=== PATIENT | female | born 1970 | race Caucasian/White ===

== ENCOUNTER 2022-11-02 08:29 | Outpatient (OUT) | payer BC, SELFPAY ==
[2022-11-02 08:49] LABS: Basophils Percent Auto 0.6 % (0.2-2.0); Eosinophils Absolute Auto 0.1 10^3/uL (0.0-0.7); Eosinophils Percent Auto 1.9 % (0.9-7.0); Hematocrit 40.1 % (36.0-48.0); Immature Granulocytes Abs Auto 0.01 10^3/uL (0.00-0.03); Immature Granulocytes Pct Auto 0.2 % (0.0-0.5); Lymphocytes Absolute Auto 1.5 10^3/uL (1.2-3.8); Mean Corpuscular HGB Conc 32.4 g/dL (29.9-35.2); Mean Corpuscular Hemoglobin 29.5 pg (26.7-34.0); Mean Corpuscular Volume 91.1 fL (81.0-99.0); Mean Platelet Volume 9.1 fL (9.5-13.5); Monocytes Absolute Auto 0.4 10^3/uL (0.3-0.8); Neutrophils Absolute Auto 3.2 10^3/uL (1.4-6.5); Neutrophils Percent Auto 61.3 % (43.0-75.0); Platelet Count 247 10^3/uL (150-450); Red Cell Distribution Width 12.6 % (11.0-15.0); White Blood Count 5.3 10^3/uL (4.0-11.0)
[2022-11-02 09:41] LABS: Alanine Aminotransferase 24 U/L (14-59); Albumin Globulin Ratio 0.9; Albumin Level 3.7 g/dL (3.4-5.0); Alkaline Phosphatase 140 U/L (46-116); Anion Gap 11.3; Aspartate Amino Transferase 13 U/L (15-37); BUN Creatinine Ratio 14.3; Bilirubin Total 0.5 mg/dL (0.2-1.0); Calcium 9.6 mg/dL (8.5-10.1); Chloride 105 mmol/L (98-107); Chol HDL Ratio 4.6; Cholesterol 143 mg/dL (<=200); Estimated GFR (African America >60 (>=60); Estimated GFR (Non-African Ame >60 (>=60); Globulin 4.3 g/dL; Glucose 105 mg/dL (74-106); HDL Cholesterol 31 mg/dL (40-60); Potassium 4.3 mmol/L (3.5-5.1); Sodium 139 mmol/L (136-145); Thyroid Stimulating Hormone 0.494 uIU/mL (0.358-3.740); Triglycerides 106 mg/dL (<=150); VLDL CHOLESTEROL 21.2 mg/dL
--- NOTE | 2022-11-02 11:32 | MM_ITS ---
Patient: VINH BROWN Exam Date: 11/02/2022 : 1970 Gender:F Ordering : Non-Staff Physician Admission #: [id number] Family : LUKE REECE Order #: [id number] CLICK HERE TO VIEW EXAM RADIOLOGY REPORT PROCEDURE: MM TOMOSYNTHESIS SCREENING BI COMPARISON: MG MAMM SCREEN 3D CINDA CAD, 11/09/2021. MG MAMM SCREEN 3D CINDA CAD, 10/30/2020. MG MAMM SCREEN CINDA W CAD, 10/24/2018. MG MAMM SCREEN CINDA W CAD, 08/30/2017. INDICATIONS: Z12.31 Calculator Name NCI Breast Cancer Risk Assessment Tool 5 Year Breast Cancer Risk 1.00% Lifetime Breast Cancer Risk 7.70% Personal Breast Cancer No Personal Ovarian Cancer No Treatments None Family Cancers None LOCATION: [facility] BREAST COMPOSITION: Heterogeneously dense,which may obscure small masses. FINDINGS: DIAGNOSTIC CATEGORY 2--BENIGN FINDING: RIGHT BREAST: No significant suspicious finding. Scattered benign-appearing calcifications are present. Scattered benign-appearing lymph nodes are present. No significant change has occurred. LEFT BREAST: No significant suspicious finding. Scattered benign-appearing lymph nodes are present. No significant change has occurred. RECOMMENDATIONS: ROUTINE MAMMOGRAM AND CLINICAL EVALUATION IN 12 MONTHS. PLEASE NOTE: A NORMAL MAMMOGRAM DOES NOT EXCLUDE THE POSSIBILITY OF BREAST CANCER. A CLINICALLY SUSPICIOUS PALPABLE LUMP SHOULD BE BIOPSIED. Dictated by: Behzad Hess M.D. on 11/03/2022 at 14:42 Approved by: Behzad Hess M.D. on 11/03/2022 at 14:50
== END 2022-11-02 08:30 | disposition home or self-care (01) ==
LOC: MAMMO 08:29
DX: Z00.00 Encounter for general adult medical examination without abnormal findings (principal); Z12.31 Encounter for screening mammogram for malignant neoplasm of breast
CPT/HCPCS: 36415; 77063; 77067; 80053; 80061; 84443; 85025

== ENCOUNTER 2023-11-03 09:51 | Outpatient (OUT) | payer BC, SELFPAY ==
[2023-11-03 10:05] LABS: Basophils Percent Auto 0.3 % (0.2-2.0); Eosinophils Absolute Auto 0.1 10^3/uL (0.0-0.7); Eosinophils Percent Auto 1.2 % (0.9-7.0); Hematocrit 40.5 % (36.0-48.0); Hemoglobin 13.2 g/dL (12.0-16.0); Immature Granulocytes Abs Auto 0.01 10^3/uL (0.00-0.03); Immature Granulocytes Pct Auto 0.2 % (0.0-0.5); Lymphocytes Absolute Auto 1.6 10^3/uL (1.2-3.8); Lymphocytes Percent Auto 27.8 % (20.5-60.0); Mean Corpuscular HGB Conc 32.6 g/dL (29.9-35.2); Mean Corpuscular Hemoglobin 28.5 pg (26.7-34.0); Mean Corpuscular Volume 87.5 fL (81.0-99.0); Mean Platelet Volume 9.2 fL (9.5-13.5); Monocytes Absolute Auto 0.4 10^3/uL (0.3-0.8); Monocytes Percent Auto 7.5 % (1.7-12.0); Neutrophils Absolute Auto 3.6 10^3/uL (1.4-6.5); Platelet Count 257 10^3/uL (150-450); Red Blood Count 4.63 10^6/uL (4.20-5.40); White Blood Count 5.8 10^3/uL (4.0-11.0)
[2023-11-03 10:18] LABS: Estimated Average Glucose 108 mg/dL; Glycohemoglobin A1C 5.4 % (4.5-6.2)
[2023-11-03 11:40] LABS: Alanine Aminotransferase 30 U/L (14-59); Albumin Level 3.9 g/dL (3.4-5.0); Alkaline Phosphatase 139 U/L (46-116); Anion Gap 14.3; Aspartate Amino Transferase 15 U/L (15-37); BUN Creatinine Ratio 20.3; Bilirubin Total 0.7 mg/dL (0.2-1.0); Calcium 9.4 mg/dL (8.5-10.1); Carbon Dioxide 24.8 mmol/L (21.0-32.0); Chloride 102 mmol/L (98-107); Chol HDL Ratio 4.3; Cholesterol 132 mg/dL (<=200); Estimated GFR (African America >60 (>=60); Estimated GFR (Non-African Ame >60 (>=60); Globulin 4.1 g/dL; Glucose 91 mg/dL (74-106); HDL Cholesterol 31 mg/dL (40-60); Potassium 4.1 mmol/L (3.5-5.1); Sodium 137 mmol/L (136-145); Thyroid Stimulating Hormone 0.511 uIU/mL (0.358-3.740); Triglycerides 131 mg/dL (<=150); VLDL CHOLESTEROL 26.2 mg/dL
--- NOTE | 2023-11-03 14:20 | MM_ITS ---
Patient Name: VINH BROWN MR#: [id number] : 1970 Exam Date: 11/03/2023 Ordering Doctor: Lisa Sears CNP RADIOLOGY REPORT PROCEDURE: MM TOMOSYNTHESIS SCREENING BI COMPARISON: MG MAMM SCREEN 3D CINDA CAD, 11/09/2021. MM TOMOSYNTHESIS SCREENING BI, 11/02/2022. INDICATIONS: Wellness Calculator Name NCI Breast Cancer Risk Assessment Tool 5 Year Breast Cancer Risk 1.00% Lifetime Breast Cancer Risk 7.50% Personal Breast Cancer No Personal Ovarian Cancer No Treatments None Family Cancers None LOCATION: [facility] BREAST COMPOSITION: The breasts are heterogeneously dense,which may obscure small masses. FINDINGS: DIAGNOSTIC CATEGORY 2--BENIGN FINDING. NO CHANGE FROM COMPARISON. Scattered benign-appearing nodules are present. Scattered benign-appearing calcifications are present. Scattered benign-appearing lymph nodes are present. RIGHT BREAST: No significant suspicious finding. LEFT BREAST: No significant suspicious finding. RECOMMENDATIONS: ROUTINE MAMMOGRAM AND CLINICAL EVALUATION IN 12 MONTHS. PLEASE NOTE: A NORMAL MAMMOGRAM DOES NOT EXCLUDE THE POSSIBILITY OF BREAST CANCER. A CLINICALLY SUSPICIOUS PALPABLE LUMP SHOULD BE BIOPSIED. Dictated by: Ed Christiansen MD on 11/03/2023 at 15:35 Approved by: Ed Christiansen MD on 11/03/2023 at 15:37
== END 2023-11-03 09:52 | disposition home or self-care (01) ==
LOC: MAMMO 09:52
PROVIDERS: Visit Provider Nurse Practitioner Family
DX: Z00.00 Encounter for general adult medical examination without abnormal findings (principal)
CPT/HCPCS: 36415; 77063; 77067; 80053; 80061; 83036; 84443; 85025

== ENCOUNTER 2024-11-25 09:13 | Outpatient (OUT) | payer BC, SELFPAY ==
--- OUTSIDE RECORDS SUMMARY | 2024-11-25 09:22 | XMS_ITS | CCD ---
Author Organization [facility] Care Team Providers Care Assistant Branch Operations Manager Name Role Phone IKE RUDD Unavailable Unavailab le MATI, LUZ MARIA FOREMAN Unavailable Unavailab le JACOB, FRANK Admitting Unavailable JACOB, FRANK Attending Unavailable JACOB, FRANK Consulting Unavailable MISC, DR LUGO Primary Care Unavailable GARCIA, NINA Attending Unavailable GARCIA, NINA Admitting Unavailable WEST, DR MINISTERIO Logan Consulting Unavailable MISC, DR LUGO Primary Care Unavailable RAYNA, NINA Consulting Unavailable MISC, DR LUGO Primary Care Unavailable JACOB, FRANK Admitting Unavailable JACOB, FRANK Attending Unavailable JACOB, FRANK Consulting Unavailable MISC, DR LUGO Primary Care Unavailable MISC, DR LUGO Admitting Unavailable MISC, DR LUGO Attending Unavailable WEST, DR MINISTERIO Logan Consulting Unavailable MISC, DR LUGO Consulting Unavailable SHAMMO, VALARIE Consulting Unavailable SHAMMO, VALARIE Admitting Unavailable MISC, DR LUGO Primary Care Unavailable WEST, DR MINISTERIO Logan Consulting Unavailable SHAMMO, VALARIE Attending Unavailable SHAMMO, VALARIE Consulting Unavailable Allergies Allergy Classification Reported Allergen(s) Allergy Type Date of Onset Reaction(s) Facility (1 source) Morphine Drug Allergy 02-13-2020 [facility] Repository Problems Active Problems Problem Classification Problem Date Documented Da te Episodic/Chronic Immunizations and screening for infectious disease (1 source) Encounter for screening for other viral diseases; Translations: [ENC SCREENING FOR OTH VIRAL DZ] Onset: 11-11-2021 Episodic Other nutritional; endocrine; and metabolic disorders (1 source) Body mass index (BMI) 40.0-44.9, adult; Translations: [BODY MASS INDEX BMI 40.0-44.9 ADULT] Onset: 11-11-2021 Chronic Other screening for suspected conditions (not mental disorders or infectious disease) (2 sources) Encounter for screening mammogram for malignant neoplasm of breast; Translations: [Encounter for screening for other suspected endocrine disorder] Onset: 11-11-2021 Episodic Thyroid disorders (9 sources) Nontoxic single thyroid nodule; Translations: [Thyrotoxicosis, unspecified without thyrotoxic crisis or storm] Onset: 11-11-2021 Chronic Unclassified (3 sources) CONTACT W/AND (SUSP) EXPOS COVID-19; Translations: [CONTACT W/AND (SUSP) EXPOS COVID-19] Onset: 10-31-2021 Past or Other Problems Problem Classification Problem Date Documented Da te Episodic/Chronic Unclassified (1 source) Other general symptoms and signs; Translations: [Other general symptoms and signs] Onset: 09-07-2016 Episodic Unclassified (1 source) CONTACT W/AND (SUSP) EXPOS COVID-19; Translations: [CONTACT W/AND (SUSP) EXPOS COVID-19] Onset: 10-27-2021 Results Test Name Value Interpretation Reference Range Facility US FNA W US GD ADD LESon US FNA W US GD ADD LES Begin Addendum #1 COLLECTED DATE/TIME: 12/10/2021 09:31 EDT Final Diagnosis Report for [facility] [place] [place] (A/B) ISTHMUS THYROID NODULES; FINE NEEDLE ASPIRATION: -BENIGN FOLLICULAR NODULE (C/D) LEFT INFERIOR THYROID NODULE; FINE NEEDLE ASPIRATION: -BENIGN FOLLICULAR NODULE. 12/15/[address] Nina Garcia. Verified with Meredith that report was received. Original Report EXAMINATION: US THYROID FN ASP BX, US FNA W US GD ADD LES HISTORY: Thyroid nodule COMPARISON: No relevant comparison available. TECHNIQUE: After obtaining informed consent, ultrasound-guided fine needle aspiration was performed in the usual sterile manner. FINDINGS: Nodule #1: IMAGING: Ultrasound. BIOPSY NEEDLE: 25-gauge 2 inch LOCATION: 1 cm right isthmus nodule SPECIMEN TYPE: 3 fine-needle aspirates LOCAL ANESTHETIC: 3 mL 1% buffered lidocaine COMPLICATIONS: None. LABORATORY: Prepared slide smears and washings for cell block evaluation. OTHER: Negative. PATHOLOGY: Pending. An addendum will be added when results are available. Nodule #2: IMAGING: Ultrasound. BIOPSY NEEDLE: 25-gauge 2 inch LOCATION: 2.3 cm left thyroid inferior nodule SPECIMEN TYPE: 3 fine-needle aspirates LOCAL ANESTHETIC: 2 mL 1% buffered lidocaine COMPLICATIONS: None. LABORATORY: Prepared slide smears and washings for cell block evaluation. OTHER: Negative. PATHOLOGY: Pending. An addendum will be added when results are available. IMPRESSION: 1. Uneventful ultrasound guided fine needle aspiration (FNA). 2 separate thyroid nodules 2. Pathology results are pending. Normal [facility] US THYROIDon 11-18-2021 US THYROID EXAMINATION: US THYR OID HISTORY: Thyrotoxicosis COMPARISON: No relevant comparison available. TECHNIQUE: Sonographic images of the thyroid gland were obtained. FINDINGS: The right thyroid lobe is lobular in contour and heterogeneous in echotexture measuring 4.9 x 2.2 x 1.7 cm. 2 focal nodules. The thyroid isthmus is thickened and heterogeneous measuring 5 mm. Single nodule on the right The left thyroid lobe measures 5.9 x 2.3 x 2.1 cm. Heterogeneous echotexture with lobular contour. 3 focal nodules. The 3 most suspicious nodules: Nodule 1: Right isthmus. 1.6 x 1.4 x 1.1 cm. Solid, hypoechoic, wide, smooth margins, no consultations. TR 4 Nodule 2: Left inferior. 1.8 x 1.6 x 1.5 cm. Solid, hypoechoic, wide, smooth margins, no calcification is. TR 4 Nodule 3: Left mid. 1.7 x 1.5 1.2 cm. Solid, hypoechoic, wide, smooth margins, no consultations. TR 4 IMPRESSION: Multiple bilateral thyroid nodules. Consider fine-needle aspiration of the 2 most suspicious nodules, nodule 2 in the left thyroid lobe measuring 1.8 cm nodule 3 left thyroid lobe measuring 1.7 cm TI-RADS: The [employer] TI-RADS committee's white paper recommendations for thyroid lesions classified as TR4 (moderately suspicious) are listed below: > 1.0 cm. Follow-up ultrasound in 1, 2, 3, and 5 years. > 1.5 cm. FNA. J. Am Marie Radiol 2017;14:587-595. Electronically authenticated by: MINISTERIO ARMENTA Date: 2021-11-18 11:33 Normal [facility] THYROTROPIN RECEPTOR ABon Thyrotropin Receptor Ab, Serum <1.10 Normal 0.00-1.75 [facility] Comment on above: Performed By: #### T HYRABT #### [facility] Laboratory [address] [address] [address] Kimberly Capone HEPATITIS C ANTIBODYon 11-10 Hep C Virus Ab 0.1 s/co ratio Normal 0.0-0.9 [facility] Comment on above: Result Comment: Nega tive: < 0.8 Indeterminate: 0.8 - 0.9 Positive: > 0.9 . HCV antibody alone does not differentiate between previous resolved infection and active infection. The CDC and current clinical guidelines recommend that a positive HCV antibody result be followed up with an HCV RNA test to support the diagnosis of acute HCV infection. [facility] offers Hepatitis C Virus (HCV) RNA, Diagnosis, FLORENCIA (862144) and Hepatitis C Virus (HCV) Antibody with reflex to Quantitative Real-time PCR (383162). Performed By: #### H CV ####[facility] W[address] [place], [place] [address]Dr. Kimberly Capone CBC AUTO DIFFon 11-09-2021 BASO # 0.0 103/ul Normal 0.0-0.1 [facility] Comment on above: Performed By: #### C BC ####[facility] [address] [place], [place] [address]DrAda Capone Basophils/100 WBC (Bld) 0.4 % Normal 0.2-2.0 [facility] Comment on above: Performed By: #### C BC ####[facility] [address] [address]DrAda Capone EO # 0.1 103/ul Normal 0.0-0.7 [facility] Comment on above: Performed By: #### C BC ####[facility] [address] [place], [place] [address]DrAda Capone Eosinophils/100 WBC (Bld) 2.5 % Normal 0.9-7.0 [facility] Comment on above: Performed By: #### C BC ####[facility] [address] [place], [place] [address]DrAda Capone Erythrocyte distribution width (RBC) [Ratio] 12.9 % Normal 11.0-15.0 [facility] Comment on above: Performed By: #### C BC ####[facility] [address] [address]DrAda Kimberly Capone Hematocrit (Bld) [Volume fraction] 40.5 % Normal 36.0-48.0 [facility] Comment on above: Performed By: #### C BC ####[facility] [address] [address]DrAda Kennedysean Liborio Hemoglobin (Bld) [Mass/Vol] 13.2 g/dL Normal 12.0-16.0 [facility] Comment on above: Performed By: #### C BC ####[facility] Em[address] [place], [place] [address]DrAda Capone IG # 0.01 10e3/ul Normal 0.00-0.03 [facility] Comment on above: Performed By: #### C BC ####[facility] [address] [place], [place] [address]DrAda Capone IG % 0.2 % Normal 0.0-0.5 [facility] Comment on above: Performed By: #### C BC ####[facility] Of[address] [place], [place] [address]DrAda Capone LYMPH # 1.4 103/ul Normal 1.2-3.8 [facility] Comment on above: Performed By: #### C BC ####[facility] [address] [place], [place] [address]DrAda Capone Lymphocytes/100 WBC (Bld) 25.0 % Normal 20.5-60.0 [facility] Comment on above: Performed By: #### C BC ####[facility] [address] [place], [place] [address]DrAda Capone MANUAL DIFF REQ NO Normal [facility] Comment on above: Performed By: #### C BC ####[facility] [address] [address]DrAda Capone MCH (RBC) [Entitic mass] 28.8 pg Normal 26.7-34.0 [facility] Comment on above: Performed By: #### C BC ####[facility] [address] [id number]. Kimberly Capone MCHC (RBC) [Mass/Vol] 32.6 g/dL Normal 29.9-35.2 [facility] Comment on above: Performed By: #### C BC ####[facility] [address] [id number]. Kimberly Capone MCV (RBC) [Entitic vol] 88.4 fL Normal 81.0-99.0 [facility] Comment on above: Performed By: #### C BC ####[facility] [address] [place], [place] [address]Dr. Kimberly Capone MONO # 0.4 103/ul Normal 0.3-0.8 [facility] Comment on above: Performed By: #### C BC ####[facility] [address] [place], [place] [address]Dr. Kimberly Capone Monocytes/100 WBC (Bld) 7.0 % Normal 1.7-12.0 [facility] Comment on above: Performed By: #### C BC ####[facility] [address] [place], [place] [address]Dr. Kimberly Capone NEUT # 3.6 103/ul Normal 1.4-6.5 [facility] Comment on above: Performed By: #### C BC ####[facility] [address] [place], [place] [address]DrAda Capone Neutrophils/100 WBC (Bld) 64.9 % Normal 43.0-75.0 [facility] Comment on above: Performed By: #### C BC ####[facility] [address] [place], [place] [id number] Capone Platelet mean volume (Bld) [Entitic vol] 9.2 fL Critically low 9.5-13.5 [facility] Comment on above: Performed By: #### C BC ####[facility] [address] [place], [place] [address]Dr. Kimberly Capone PLT 266 103/ul Normal 150-450 [facility] Comment on above: Performed By: #### C BC ####[facility] [address] [place], [place] [address]UnAda Capone RBC 4.58 106/ul Normal 4.20-5.40 [facility] Comment on above: Performed By: #### C BC ####[facility] [address] [place], [place] [address]MiAda Capone WBC 5.6 103/ul Normal 4.0-11.0 [facility] Comment on above: Performed By: #### C BC ####[facility] [address] [id number] Capone FREE T3on 11-09-2021 FREE T3 3.57 pg/mlL Normal 2.18-3.98 [facility] Comment on above: Performed By: #### F T3 #### [facility] Laboratory [address] [address] [address] Kimberly Capone FREE T4on 11-09-2021 Free T4 [Mass/Vol] 1.16 ng/dL Normal 0.76-1.46 [facility] Comment on above: Performed By: #### F T4 ####[facility] [address] [address]Dr. Kimberly Capone GLYCOHEMOGLOBIN A1Con 2021 ADA RECOMMENDATION SEE BELOW Normal [facility] Comment on above: Result Comment: ADA RECOMMENDED LIMIT 4.0 - 6.0 ADA THERAPEUTIC TARGET < 7.0 ACTION SUGGESTED > 7.0 Performed By: #### A 1C #### [facility] Laboratory [address] [address] [address] Kimberly Capone Glucose [Mass/Vol] 111 mg/dL Normal [facility] Comment on above: Performed By: #### A 1C #### [facility] Laboratory [address] [address] [address] Kimberly Capone HbA1c (Bld) [Mass fraction] 5.5 % Normal 4.5-6.2 [facility] Comment on above: Performed By: #### A 1C #### [facility] Laboratory [address] [address] [address] Kimberly Capone LIPID PROFILEon 11-09-2021 CHOL-HDL RATIO NORM SEE BELOW Normal [facility] Comment on above: Result Comment: 3.3 - 4.4 LOW RISK 4.4 - 7.1 AVERAGE RISK 7.1 - 11.0 MODERATE RISK >11.0 HIGH RISK Performed By: #### C MP, LIPID, TSH #### [facility] Laboratory [address] [address] [address] Kimberly Capone Cholesterol [Mass/Vol] 143 mg/dL Normal <=200 [facility] Comment on above: Performed By: #### C MP, LIPID, TSH #### [facility] Laboratory [address] [address] [address] Kimberly Capone Cholesterol in HDL [Mass/Vol] 29 mg/dL Critically low 40-60 [facility] Comment on above: Performed By: #### C MP, LIPID, TSH #### [facility] Laboratory [address] [address] [address] Kimberly Capone Cholesterol in LDL [Mass/Vol] 88.0 mg/dL Normal [facility] Comment on above: Performed By: #### C MP, LIPID, TSH #### [facility] Laboratory [address] [address] [address] Kimberly Capone Cholesterol.total/C holesterol in HDL [Mass ratio] 4.9 {ratio} Normal [facility] Comment on above: Performed By: #### C MP, LIPID, TSH #### [facility] Laboratory [address] [address] [address] Kimberly Capone HDL NORMAL > or = 60 mg/dl - LO W CARDIOVASCULAR RISK <40 mg/dl - HIGH CARDIOVASCULAR RISK Normal [facility] Comment on above: Performed By: #### C MP, LIPID, TSH #### [facility] Laboratory [address] [address] [address] Kimberly Capone LDL CALC NORMAL SEE BELOW Normal [facility] Comment on above: Result Comment: <100 mg/dl OPTIMAL 100 - 129 mg/dl NEAR OR ABOVE OPTIMAL 130 - 159 mg/dl BORDERLINE HIGH 160 - 189 mg/dl HIGH >190 mg/dl VERY HIGH Performed By: #### C MP, LIPID, TSH #### [facility] Laboratory [address] [place], [place] [address] Dr. Kimberly Capone Triglyceride [Mass/Vol] 130 mg/dL Normal <=150 [facility] Comment on above: Performed By: #### C MP, LIPID, TSH #### [facility] Laboratory [address] [place], [place] [address] Dr. Kimberly Capone VLDL CALC 26.0 mg/dL Normal [facility] Comment on above: Performed By: #### C MP, LIPID, TSH #### [facility] Laboratory [address] [place], [place] [address] Dr. 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 MG MAMM SCREEN 3D CINDA CAD, 10/30/2020. INDICATIONS: Screening mammography Calculator Name NCI Breast Cancer Risk Assessment Tool 5 Year Breast Cancer Risk 0.90% Lifetime Breast Cancer Risk 7.80% Personal Breast Cancer No Personal Ovarian Cancer No Treatments None Family Cancers None LOCATION: [facility] BREAST COMPOSITION: Heterogeneously dense,which may obscure small masses. FINDINGS: DIAGNOSTIC CATEGORY 2--BENIGN FINDING. NO CHANGE FROM COMPARISON. Scattered benign-appearing nodules are present. Scattered benign-appearing calcifications are present. Scattered benign-appearing lymph nodes are present. RIGHT BREAST: No significant suspicious finding. LEFT BREAST: No significant suspicious finding. RECOMMENDATIONS: ROUTINE MAMMOGRAM AND CLINICAL EVALUATION IN 12 MONTHS. PLEASE NOTE: A NORMAL MAMMOGRAM DOES NOT EXCLUDE THE POSSIBILITY OF BREAST CANCER. A CLINICALLY SUSPICIOUS PALPABLE LUMP SHOULD BE BIOPSIED. Dictated by: Ministerio Armenta MD on 11/10/2021 at 07:06 Approved by: Ministerio Armenta MD on 11/10/2021 at 07:35 Normal [facility] PROF 14(COMP METB)on 022 Albumin [Mass/Vol] 4.0 g/dL Normal 3.4-5.0 [facility] Comment on above: Performed By: #### C MP, LIPID, TSH #### [facility] Laboratory [address] [address] [address] Kimberly Capone Albumin/Globulin [Mass ratio] 1.0 {ratio} Normal [facility] Comment on above: Performed By: #### C MP, LIPID, TSH #### [facility] Laboratory [address] [address] [address] Kimberly Capone ALP [Catalytic activity/Vol] 123 U/L Critically high 46-116 [facility] Comment on above: Performed By: #### C MP, LIPID, TSH #### [facility] Laboratory [address] [address] [address] Kimberly Capone ALT [Catalytic activity/Vol] 31 U/L Normal 14-59 [facility] Comment on above: Performed By: #### C MP, LIPID, TSH #### [facility] Laboratory [address] [address] [address] Kimberly Capone Anion gap [Moles/Vol] 12.9 mmol/L Normal [facility] Comment on above: Performed By: #### C MP, LIPID, TSH #### [facility] Laboratory [address] [address] [address] Kimberly Capone AST [Catalytic activity/Vol] 17 U/L Normal 15-37 [facility] Comment on above: Performed By: #### C MP, LIPID, TSH #### [facility] Laboratory [address] [address] [address] Kimberly Capone Bilirubin [Mass/Vol] 0.5 mg/dL Normal 0.2-1.0 [facility] Comment on above: Performed By: #### C MP, LIPID, TSH #### [facility] Laboratory [address] [address] [address] Kimberly Capone Calcium [Mass/Vol] 9.4 mg/dL Normal 8.5-10.1 [facility] Comment on above: Performed By: #### C MP, LIPID, TSH #### [facility] Laboratory [address] [address] [address] Kimberly Capone Chloride [Moles/Vol] 104 mmol/L Normal 98-107 [facility] Comment on above: Performed By: #### C MP, LIPID, TSH #### [facility] Laboratory [address] [place] [address] Dr. Kimberly Capone CO2 [Moles/Vol] 27.3 mmol/L Normal 21.0-32.0 [facility] Comment on above: Performed By: #### C MP, LIPID, TSH #### [facility] Laboratory [address] [place] [address] Dr. Kimberly Capone Creatinine [Mass/Vol] 0.78 mg/dL Normal 0.55-1.02 [facility] Comment on above: Performed By: #### C MP, LIPID, TSH #### [facility] Laboratory [address] [place] [address] Dr. Kimberly Capone EGFR-AF PORTUGUESE >60 Normal >=60 [facility] Comment on above: Performed By: #### C MP, LIPID, TSH #### [facility] Laboratory [address] [place] [address] Dr. Kimberly Capone EGFR-NON AF PORTUGUESE >60 Normal >=60 [facility] Comment on above: Performed By: #### C MP, LIPID, TSH #### [facility] Laboratory [address] [place] [address] Dr. Kimberly Capone Globulin (S) [Mass/Vol] 4.1 g/dL Normal [facility] Comment on above: Performed By: #### C MP, LIPID, TSH #### [facility] Laboratory [address] [place] [address] Dr. Kimberly Capone Glucose [Mass/Vol] 110 mg/dL Critically high 74-106 [facility] Comment on above: Performed By: #### C MP, LIPID, TSH #### [facility] Laboratory [address] [place] [address] Dr. Kimberly Capone Potassium [Moles/Vol] 4.2 mmol/L Normal 3.5-5.1 [facility] Comment on above: Performed By: #### C MP, LIPID, TSH #### [facility] Laboratory [address] [place] [address] Dr. Kimberly Capone Protein [Mass/Vol] 8.1 g/dL Normal 6.4-8.2 [facility] Comment on above: Performed By: #### C MP, LIPID, TSH #### [facility] Laboratory [address] [place] [address] Dr. Kimberly Capone Sodium [Moles/Vol] 140 mmol/L Normal 136-145 [facility] Comment on above: Performed By: #### C MP, LIPID, TSH #### [facility] Laboratory [address] [place] [address] Dr. Kimberly Capone Urea nitrogen [Mass/Vol] 12.0 mg/dL Normal 7.0-18.0 [facility] Comment on above: Performed By: #### C MP, LIPID, TSH #### [facility] Laboratory [address] [place] [address] Dr. Kimberly Capone Urea nitrogen/Creatinine [Mass ratio] 15.4 mg/mg Normal [facility] Comment on above: Performed By: #### C MP, LIPID, TSH #### [facility] Laboratory [address] [place] [address] Dr. Kimberly Capone TSHon 11-09-2021 TSH 0.197 uIU/mL Critically low 0.358-3.740 [facility] Comment on above: Performed By: #### C MP, LIPID, TSH #### [facility] Laboratory [address] [place] [address] Dr. Kimberly Capone ASYMPTOMATIC COVID-19 ANTIGE Non 10-27-2021 EUA Statement SEE BELOW Normal [facility] Comment on above: Result Comment: This test has not been FDA cleared or approved, but has been authorized by the FDA under an Emergency Use Authorization (EUA) for use by authorized laboratories certified under CLIA that meet the requirements to perform moderate or high complexity testing. This test has been authorized only for the detection of proteins from SARS-CoV-2, not for any other viruses or pathogens. The emergency use of this test is authorized for the duration of the declaration that circumstances exist justifying the authorization of emergency use of in vitro diagnostic tests for detection and/or diagnosis of Covid-19 under section 564(b)(1) of the Act, 21 U.S.C. 360bbb-3(b)(1), unless the declaration is terminated or authorization is revoked sooner. Performed By: #### C VDAGA #### [facility] Laboratory [address] [place] [address] [address] Kimberly Capone SARS-CoV-2 (COVID-19) RNA FLORENCIA+probe Ql (Unsp spec) Negative Normal NEGATIVE [facility] [facility] Comment on above: Result Comment: Nega tive results are presumptive. They do not preclude infection and should not be used as the sole basis for treatment decisions. Additional confirmatory testing by a molecular method should be considered. Performed By: #### C VDAGA #### [facility] Laboratory [address], [place] [address] Dr. Kimberly Capone [facility]14 SARS-CoV-2 (COVID-19) RNA FLORENCIA+probe Ql (Unsp spec) Not detected Normal NOT DETECTED [facility] Comment on above: Result Comment: When diagnostic testing is negative, the possibility of a false negative should be considered in the context of a patient's recent exposures and the presence of clinical signs and symptoms consistent with SARS-CoV-2. This test is not yet approved or cleared by the [place] FDA. When there are no FDA-approved or cleared tests available, and other criteria are met, FDA can make tests available under an emergency access mechanism called an Emergency Use Authorization (EUA). The EUA for this test is supported by the [place] of Health and Human Service's declaration that circumstances exist to justify the emergency use of in vitro diagnostics for the detection and/or diagnosis of the virus that causes COVID-19. This EUA will remain in effect for the duration of the COVID-19 declaration justifying emergency of IVDs, unless it is terminated or revoked by the FDA (after which the test may no longer be used). Performed By: #### C VDTBH ####[facility] [address] [place], [place] [address]MeDr. Kimberly Capone RAD - CT Reporton 11-13-[address] - [address] Report [id number]:127 Normal [facility] Provider Letter FTon 11-06 Provider Letter [facility] November 06, 2020 Micah Plascencia D.O. [address] [place] [address] Re: VINH TOM Date of : 1970 Thank you for your referral of Vinh Tom who was seen on consultation on November 03, 2020, for solid mass right upper quadrant. Testing has been ordered for further evaluation. I have enclosed my consultation note for your review. I will be happy to follow Vinh should her symptoms persist. Sincerely, Timothy Squires MD General Surgery Normal [facility] Patient Educationon 11-06-19 Patient Education Gastroenterology Abdominal Pain, Adult Pain in the abdomen (abdominal pain) can be caused by many things. Often, abdominal pain is not serious and it gets better with no treatment or by being treated at home. However, sometimes abdominal pain is serious. Your health care provider will ask questions about your medical history and do a physical exam to try to determine the cause of your abdominal pain. Follow these instructions at home: Medicines ? Take vckg-vkj-oqhzaid and prescription medicines only as told by your health care provider. ? Do not take a laxative unless told by your health care provider. General instructions ? Watch your condition for any changes. ? Drink enough fluid to keep your urine pale yellow. ? Keep all follow-up visits as told by your health care provider. This is important. Contact a health care provider if: ? Your abdominal pain changes or gets worse. ? You are not hungry or you lose weight without trying. ? You are constipated or have diarrhea for more than 2?3 days. ? You have pain when you urinate or have a bowel movement. ? Your abdominal pain wakes you up at night. ? Your pain gets worse with meals, after eating, or with certain foods. ? You are vomiting and cannot keep anything down. ? You have a fever. ? You have blood in your urine. Get help right away if: ? Your pain does not go away as soon as your health care provider told you to expect. ? You cannot stop vomiting. ? Your pain is only in areas of the abdomen, such as the right side or the left lower portion of the abdomen. Pain on the right side could be caused by appendicitis. ? You have bloody or black stools, or stools that look like tar. ? You have severe pain, cramping, or bloating in your abdomen. ? You have signs of dehydration, such as: ? Dark urine, very little urine, or no urine. ? Cracked lips. ? Dry mouth. ? Sunken eyes. ? Sleepiness. ? Weakness. ? You have trouble breathing or chest pain. Summary ? Often, abdominal pain is not serious and it gets better with no treatment or by being treated at home. However, sometimes abdominal pain is serious. ? Watch your condition for any changes. ? Take genz-ynw-yielomq and prescription medicines only as told by your health care provider. ? Contact a health care provider if your abdominal pain changes or gets worse. ? Get help right away if you have severe pain, cramping, or bloating in your abdomen. This information is not intended to replace advice given to you by your health care provider. Make sure you discuss any questions you have with your health care provider. Document Released: 11/09/2005 Document Revised: 06/10/2019 Document Reviewed: 06/10/2019 [employer] Patient Education ? 2020 [employer] Radiology Colonoscopy, Adult A colonoscopy is an exam to look at the entire large intestine. During the exam, a lubricated, flexible tube that has a camera on the end of it is inserted into the anus and then passed into the rectum, colon, and other parts of the large intestine. You may have a colonoscopy as a part of normal colorectal screening or if you have certain symptoms, such as: ? Lack of red blood cells (anemia). ? Diarrhea that does not go away. ? Abdominal pain. ? Blood in your stool (feces). A colonoscopy can help screen for and diagnose medical problems, including: ? Tumors. ? Polyps. ? Inflammation. ? Areas of bleeding. Tell a health care provider about: ? Any allergies you have. ? All medicines you are taking, including vitamins, herbs, eye drops, creams, and qsej-hym-bgwrnco medicines. ? Any problems you or family members have had with anesthetic medicines. ? Any blood disorders you have. ? Any surgeries you have had. ? Any medical conditions you have. ? Any problems you have had passing stool. What are the risks? Generally, this is a safe procedure. However, problems may occur, including: ? Bleeding. ? A tear in the intestine. ? A reaction to medicines given during the exam. ? Infection (rare). What happens before the procedure? Eating and drinking restrictions Follow instructions from your health care provider about eating and drinking, which may include: ? A few days before the procedure ? follow a low-fiber diet. Avoid nuts, seeds, dried fruit, raw fruits, and vegetables. ? 1?3 days before the procedure ? follow a clear liquid diet. Drink only clear liquids, such as clear broth or bouillon, black coffee or tea, clear juice, clear soft drinks or sports drinks, gelatin dessert, and popsicles. Avoid any liquids that contain red or purple dye. ? On the day of the procedure ? do not eat or drink anything starting 2 hours before the procedure, or within the time period that your health care provider recommends. Up to 2 hours before the procedure, you may continue to drink clear liquids, such as water or clear fruit juice. Bowel prep If you were prescribed an oral bowel p (more content not included)... [facility] Pre-Certification Formon Pre-Certification Form [id number]:127 [facility] Physician Referralon 021 Physician Referral [id number]:127 [facility] CNOVon 09-07-2016 CNOV Office Visit (MIRIAN) VINH TOM ([id number]) 1970 [facility] Time Provider Department09/07/16 12:30 PM IKE RUDD During your visit today, we recorded the following information about you: Pulse Respiration Blood pressure Weight 84/minute 18/minute 139/85 90.7 kg Height 1.676 Tere Rudd MD 09/07/2016 1:07 PM [facility] InstituteGeovani Moore Department of Cardiovascular MedicineOUTPATIENT VISIT DATE 09/07/16OUTPATIENT VISIT TYPENEWPRIMARY CARE PHYSICIAN:[place] [address]Slpuc: [phone]: [phone] COMPLAINT:Patient presents with:New Patient: Neck and jaw discomfortHISTORY OF PRESENT ILLNESS:Vinh Tom is a 46 year old female with no significant past cardiachistory.The patient presents after developing a fullness in her neck and pain in herjaws over the past 2-3 months. The patient states that it seems to be presentfor hours at a time. There is no chest discomfort. There is no shortness ofbreath. There is no nausea or diaphoresis associated with this symptom. Thediscomfort can last all day. It does not seem to change with exertion. Sherates it as an 8 out of 10 in severity. It does not seem to be worsened withmovement of her neck or jaw. She denies any previous cardiac history. Shedoes admit to a large amount of stress on both a personal and work basis. Sheis apparently caring for a large family. Her has an injury and islimited in his abilities at this time. She has multiple children who arescattered about the country. She has a daughter who is about to give buthas been having some pain during the . The patient herself does notbelieve that it is cardiac in origin. She does however no quite well that thepresentation can be different for female patients.No past medical history on file.PAST SURGICAL HISTORYNo date: APPENDECTOMY HXNo date: HERNIA REPAIR HXNo date: PAST SURGICAL HISTORY OF Comment: C-SectionNo date: REMOVAL GALLBLADDERSocial HistorySubstance Use Topics- Smoking status: Former Smoker Packs/day: 0.50 Years: 10.00 Types: Cigarettes Quit date: 09/07/2006- Smokeless tobacco: Not on file- Alcohol use NoFAMILY HISTORY Cancer FatherALLERGIES:ALLERGIESN o Known AllergiesMEDICATIONS:No prescriptions on file.REVIEW OF SYSTEMS:A complete review of systems was obtained and is remarkable for that notedabove. The remaining systems are unremarkable.I personally interviewed, confirmed and edited the above information ifobtained by others.PHYSICAL EXAMINATION:BP 139/85 Pulse 84 Resp 18 Ht 167.6 cm (5' 6ANDquot;) Wt 90.7 kg (200 lb) SpO2 98% BMI 32.28 kg/s1Ocmwzri: Well appearing, in no acute distress.Eyes: Conjunctiva normal, sclera normalNeck: No jugular venous distention, no palpable thyromegaly.Heart: Regular rhythm, S1, S2 normal, no S3, no S4. No murmur. No carotidbruits.Respiratory: Clear to auscultation bilaterally. Good respiratory effort.GI: Soft, nontender, bowel sounds normal, no palpable hepatosplenomegalyExtremit ies: Normal pulses in distal lower extremities. Absent lower extremityedemaNeuro: Alert, cooperative with no focal deficit.Psych: Pleasant and cooperative.Skin: No rashes or wounds.CARDIOVASCULAR MEDICINE TESTING:A 12-lead electrocardiogram obtained on September 07, 2016 reveals normal sinusrhythm at 73 bpm. This is a normal ECG.I have personally reviewed the above Cardiovascular Medicine Testing.IMPRESSION:1. Neck fullness, bilateral jaw discomfort not related to exertion, noelectrocardiographic changes despite the discomfort persisting all day attimes, does not appear to be anginal. Consider stress related.2. Increased stress with multiple family and work issues.PLAN:1. No further cardiac workup is planned at this time. I have offered to ordera blood test for troponin. We have discussed the possibility of a stressevaluation. She would prefer to hold on these for now.2. Discussed consideration of anxiolytic for a brief time. She would prefernot to do that.3. Have asked her to contact us for any worsening of her symptoms or thedevelopment of exertional symptoms.4. Follow-up with me as needed.A copy of this note will be provided to the primary physician by way of sharedmedical record or to the requesting physician via U.S. Mail.This document was generated utilizing [employer]. I have reviewed andverified that the contents of the document are accurate with the exception ofminor grammatical, spelling and punctuation errors.CONTACT INFORMATION:Thank you for allowing us to participate in the care of this very pleasantpatient. Please free to contact us if we can be of any further assistance.Ike Rudd MD, FACAlyssa MooreNvpartment of Cardiovascular MedicineNationwide Children'S Hospitalrt and Vascular InstituteBellevue Hospital[address], [place] [address]Wubmku: [phone] Referring Provider: LUZ MARIA THORNE [[id number]]Allergies As of Date: 09/07/2016(No Known Allergies)Date Reviewed: 09/07/2016Reviewed by: Ike Rudd - Fully AssessedReason for Visit: New Patient [172] Cmt: Neck and jaw discomfortPrimary Visit Diagnosis:Jaw pain [R68.84]Problem List As Of Date: 09/07/2016(None) Status:Closed by GIO RUDD MD on 09/07/16 [facility] PROGRESSon 09-07-2016 PROGRESS HNO ID: [id number] thor: Ike Esquedaervice: (none)Author Type: PhysicianType: Progress NotesFiled: 09/07/2016 1:07 PMNote Text:Heart and Vascular InstituteRobert and Sahra Moore Department of Cardiovascular MedicineOUTPATIENT VISIT DATE 09/07/16OUTPATIENT VISIT TYPENEWPRIMARY CARE PHYSICIAN:Luz Maria Thorne MD[address] [facility] [address]Lkvzh: [phone]: [phone] COMPLAINT:Patient presents with:New Patient: Neck and jaw discomfortHISTORY OF PRESENT ILLNESS:Vinh Tom is a 46 year old female with no significant past cardiachistory.The patient presents after developing a fullness in her neck and pain inher jaws over the past 2-3 months. The patient states that it seems to bepresent for hours at a time. There is no chest discomfort. There is noshortness of breath. There is no nausea or diaphoresis associated withthis symptom. The discomfort can last all day. It does not seem tochange with exertion. She rates it as an 8 out of 10 in severity. Itdoes not seem to be worsened with movement of her neck or jaw. She deniesany previous cardiac history. She does admit to a large amount of stresson both a personal and work basis. She is apparently caring for a largefamily. Her has an injury and is limited in his abilities at thistime. She has multiple children who are scattered about the country. Shehas a daughter who is about to give but has been having some painduring the . The patient herself does not believe that it iscardiac in origin. She does however no quite well that the presentationcan be different for female patients.No past medical history on file.PAST SURGICAL HISTORYNo date: APPENDECTOMY HXNo date: HERNIA REPAIR HXNo date: PAST SURGICAL HISTORY OF Comment: C-SectionNo date: REMOVAL GALLBLADDERSocial HistorySubstance Use Topics- Smoking status: Former Smoker Packs/day: 0.50 Years: 10.00 Types: Cigarettes Quit date: 09/07/2006- Smokeless tobacco: Not on file- Alcohol use NoFAMILY HISTORY Cancer FatherALLERGIES:ALLERGIESN o Known AllergiesMEDICATIONS:No prescriptions on file.REVIEW OF SYSTEMS:A complete review of systems was obtained and is remarkable for that notedabove. The remaining systems are unremarkable.I personally interviewed, confirmed and edited the above information ifobtained by others.PHYSICAL EXAMINATION:BP 139/85 Pulse 84 Resp 18 Ht 167.6 cm (5' 6 ) Wt 90.7 kg (200 lb) SpO2 98% BMI 32.28 kg/u0Kjucnix: Well appearing, in no acute distress.Eyes: Conjunctiva normal, sclera normalNeck: No jugular venous distention, no palpable thyromegaly.Heart: Regular rhythm, S1, S2 normal, no S3, no S4. No murmur. No carotidbruits.Respiratory: Clear to auscultation bilaterally. Good respiratory effort.GI: Soft, nontender, bowel sounds normal, no palpable hepatosplenomegalyExtremit ies: Normal pulses in distal lower extremities. Absent lowerextremity edemaNeuro: Alert, cooperative with no focal deficit.Psych: Pleasant and cooperative.Skin: No rashes or wounds.CARDIOVASCULAR MEDICINE TESTING:A 12-lead electrocardiogram obtained on September 07, 2016 reveals normal sinusrhythm at 73 bpm. This is a normal ECG.I have personally reviewed the above Cardiovascular Medicine Testing.IMPRESSION:1. Neck fullness, bilateral jaw discomfort not related to exertion, noelectrocardiographic changes despite the discomfort persisting all day attimes, does not appear to be anginal. Consider stress related.2. Increased stress with multiple family and work issues.PLAN:1. No further cardiac workup is planned at this time. I have offered ineser a blood test for troponin. We have discussed the possibility of astress evaluation. She would prefer to hold on these for now.2. Discussed consideration of anxiolytic for a brief time. She wouldprefer not to do that.3. Have asked her to contact us for any worsening of her symptoms or thedevelopment of exertional symptoms.4. Follow-up with me as needed.A copy of this note will be provided to the primary physician by way ofshared medical record or to the requesting physician via U.S. Mail.This document was generated utilizing [employer]. I have reviewedand verified that the contents of the document are accurate with theexception of minor grammatical, spelling and punctuation errors.CONTACT INFORMATION:Thank you for allowing us to participate in the care of this very pleasantpatient. Please free to contact us if we can be of any furtherassistance.Ike Rudd MD, FACCRobert and Sahra MooreDepartment of Cardiovascular MedicineNationwide Children'S Hospitalrt and Vascular Institute[address] [address]Uoggpb: [phone] [facility] Encounters Encounter Date Encounter Type Care Provider Facility Start: 12-10-2021 End: 12-10-2021 ambulatory NINA GARCIA Facility:[facility] Start: 11-18-2021 End: 11-19-2021 ambulatory VALARIE RILEYLUIS CARLOS Facility:[facility] Start: 11-11-2021 Encounter for genera l adult medical examination without abnormal findings DR DOCTOR DEL RIO [facility] Start: 11-09-2021 End: 11-10-[address] DOCTOR DEL RIO Facility:[facility] Start: 11-09-2021 End: 11-10-2021 Encounter for general adult medical examination without abnormal findings DR DOCTOR DEL RIO Facility:[facility] Start: 10-27-2021 End: 10-27-[address] DOCTOR DEL RIO Facility:[facility] Start: 10-08-2021 End: 10-08-2021 ambulatory FRANK JAMES Facility:[facility] Start: 09-07-2016 End: 09-13-2016 Ambulatory IKE RUDD [facility] Payers Date Payer Category Payer Unknown [id number] 1970 Unknown [id number] 2.16.84 [id number] 1970 Unknown [id number] 2.16.84 [id number] 1970 Unknown [id number] 2.16.84 [id number] 1970 Unknown [id number] 2.16.84 [id number] 1970 Unknown [id number] 2.16.84 [id number] Clinical Note 11-29-2020 Note Date & Type Note Facility 11-29-2020 Note Chief Complaint consultation for mass HPI Staff 50 year old female presents on consultation from Dr. Plascencia for solid mass RUQ. Present roughly one month. Has increased in size and discomfort. Feels pressure underneath this are. Denies nausea or vomiting. RUQ US reported normal. ROS - Provider Constitutional: no fever, no sweats, no weight loss. Eyes: yes glasses, no blurred vision, no visual loss. ENMT: no dentures, no hoarseness, no swallowing difficulties, no hearing loss, no ear infection(s), no nose bleeds. Cardiovascular: normal blood pressure, no chest pain, regular heartbeat, no heart murmur. Respiratory: no shortness of breath, no cough, no asthma, no wheezing. Gastrointestinal: no nausea, no vomiting, no diarrhea, no constipation, no blood in stool, no change in bowel habits, moderate abdominal pain, no hepatitis. Genitourinary: no kidney stones, no urine infection, no dysuria. Musculoskeletal: no pain, no weakness. Skin: no changing moles, no rash, no skin lumps. Neurologic: no seizures, no epilepsy, no headache. Psychiatric: no emotional or psychiatric problem. Heme/Lymph: no bleeding problems, no anemia, no blood clots, no transfusions. Allergy/Immunologic: no swollen lymph nodes/glands, no IV drug abuse. Other: Additional ROS info: Except as noted in the above Review of Systems and in the History of Present Illness, all other systems have been reviewed and are negative or noncontributory. HEENT: normal conjunctiva, sclera clear, no scleral icterus, EOM intact, PERRLA, oral mucosa moist without lesions. Neck: trachea midline, no mass, symmetric, no thyromegaly or nodules, no adenopathy Respiratory: lungs CTA, respirations non labored. Cardiovascular: regular rate and rhythm, no murmur, no pedal edema or varicosities. Gastrointestinal: obese, soft, non distended, mild tenderness, RUQ at costal margin, over port site scar, no palpable mass or reducible bulge, no skin changes; no masses, no palpable hernias, diastasis recti yes, no hepatosplenomegaly; normal bs Lymphatic: no cervical adenopathy, Musculoskeletal: normal gait, digits and nails without infection, nodes, cyanosis, clubbing. Skin: no rashes, no lesions, no ulcers, no subcutaneous nodules, induration. Psychiatric/Neuro: oriented to time, place, person, judgement normal, affect appropriate for age, insight intact, no focal deficits. Tests: , x-rays reviewed, review of old records completed, Discussed surgical options, risks, and possible complications with patient. 50 yo female referred by Dr Plascencia for RUQ mass/pain/pressure; feels under right rib cage; worsening over past month; ache and fullness, no triggering events, no injury to area, no skin changes; recent RUQ US with normal liver; patient had previous laparoscopic cholecystectomy in 2010, area of discomfort at port site; no N/V, no bowel changes, no blood in stools; no previous colonoscopy; abdominal operations also significant for appendectomy, and incisional hernia repair; patient denies asa or NSAID use, no SBE prophylaxis; no fmhx of GI malignancy or IBD; patient due for screening colonoscopy as well. 1. Right upper quadrant pain (R10.11: Right upper quadrant pain) obtain abd/pelvic ct scan with contrast for further evaluation; possible hernia; will call patient with results; call sooner if problems/questions. 2. Abdominal wall bulge (R19.00: Intra-abdominal and pelvic swelling, mass and lump, unspecified site) see # 1 3. Screening for malignant neoplasm of colon (Z12.11: Encounter for screening for malignant neoplasm of colon) plan colonoscopy under anesthesia after ct scan completed. History of Present Illness 50 yo female referred for RUQ pain/pressure/ mass up under rib cage; no N/V; no skin changes, no injury to area; present for 1 month with progressive discomfort; normal bms; recent RUQ US wnl; abdominal operations significant for LS cholecystectomy, appendectomy and ventral hernia repair; area in question is near cholecystectomy port site; no injury to area. no change in bms or blood in stools; no asa or NSAID use; no SBE prophylaxis; no previous colonoscopy; no fmhx of GI malignancy or IBD. Review of Systems PHQ Score Initial Depression Screen Score: 0 ROS - Provider Constitutional: no fever, no sweats, no weight loss. Eyes: no glasses, no blurred vision, no visual loss. ENMT: no dentures, no hoarseness, no swallowing difficulties, no hearing loss, no ear infection(s), no nose bleeds. Cardiovascular: normal blood pressure, no chest pain, regular heartbeat, no heart murmur. Respiratory: no shortness of breath, no cough, no asthma, no wheezing. Gastrointestinal: no nausea, no vomiting, no diarrhea, no constipation, no blood in stool, no change in bowel habits, no abdominal pain, no hepatitis. Genitourinary: no kidney stones, no urine infection, no dysuria. Musculoskeletal: no pain, no weakness. Skin: no changing moles, no rash, yes skin lumps. Neurologi (more content not included)... [facility] Comment on above: Result Comment: Elec tronically Signed By: ANNALISA CORCORAN, Timothy Braxton\Date and Time Signed: 11/29/20 21:43 EDT Clinical Note 11-05-2020 Note Date & Type Note Facility 11-05-2020 Note Chief Complaint consultation for mass HPI Staff 50 year old female presents on consultation from Dr. Plascencia for solid mass RUQ. Present roughly one month. Has increased in size and discomfort. Feels pressure underneath this are. Denies nausea or vomiting. RUQ US reported normal. History of Present Illness 50 yo female referred by Dr Plascencia for RUQ mass/pain/pressure; feels under right rib cage; worsening over past month; ache and fullness, no triggering events, no injury to area, no skin changes; recent RUQ US with normal liver; patient had previous laparoscopic cholecystectomy in 2010, area of discomfort at port site; no N/V, no bowel changes, no blood in stools; no previous colonoscopy; abdominal operations also significant for appendectomy, and incisional hernia repair; patient denies asa or NSAID use, no SBE prophylaxis; no fmhx of GI malignancy or IBD; patient due for screening colonoscopy as well. Review of Systems PHQ Score Initial Depression Screen Score: 0 ROS - Provider Constitutional: no fever, no sweats, no weight loss. Eyes: yes glasses, no blurred vision, no visual loss. ENMT: no dentures, no hoarseness, no swallowing difficulties, no hearing loss, no ear infection(s), no nose bleeds. Cardiovascular: normal blood pressure, no chest pain, regular heartbeat, no heart murmur. Respiratory: no shortness of breath, no cough, no asthma, no wheezing. Gastrointestinal: no nausea, no vomiting, no diarrhea, no constipation, no blood in stool, no change in bowel habits, moderate abdominal pain, no hepatitis. Genitourinary: no kidney stones, no urine infection, no dysuria. Musculoskeletal: no pain, no weakness. Skin: no changing moles, no rash, no skin lumps. Neurologic: no seizures, no epilepsy, no headache. Psychiatric: no emotional or psychiatric problem. Heme/Lymph: no bleeding problems, no anemia, no blood clots, no transfusions. Allergy/Immunologic: no swollen lymph nodes/glands, no IV drug abuse. Other: Additional ROS info: Except as noted in the above Review of Systems and in the History of Present Illness, all other systems have been reviewed and are negative or noncontributory. Physical Exam Vitals & Measurements T: 37.0 ?C (Temporal Artery) HR: 80(Peripheral) RR: 16 BP: 122/82 HT: 167.6 cm HT: 167.6 cm WT: 114 kg WT: 114.0 kg BMI: 40.58 HEENT: normal conjunctiva, sclera clear, no scleral icterus, EOM intact, PERRLA, oral mucosa moist without lesions. Neck: trachea midline, no mass, symmetric, no thyromegaly or nodules, no adenopathy Respiratory: lungs CTA, respirations non labored. Cardiovascular: regular rate and rhythm, no murmur, no pedal edema or varicosities. Gastrointestinal: obese, soft, non distended, mild tenderness, RUQ at costal margin, over port site scar, no palpable mass or reducible bulge, no skin changes; no masses, no palpable hernias, diastasis recti yes, no hepatosplenomegaly; normal bs Lymphatic: no cervical adenopathy, Musculoskeletal: normal gait, digits and nails without infection, nodes, cyanosis, clubbing. Skin: no rashes, no lesions, no ulcers, no subcutaneous nodules, induration. Psychiatric/Neuro: oriented to time, place, person, judgement normal, affect appropriate for age, insight intact, no focal deficits. Tests: , x-rays reviewed, review of old records completed, Discussed surgical options, risks, and possible complications with patient. Assessment/Plan 1. Right upper quadrant pain (R10.11: Right upper quadrant pain) obtain abd/pelvic ct scan with contrast for further evaluation; possible hernia; will call patient with results; call sooner if problems/questions. 2. Abdominal wall bulge (R19.00: Intra-abdominal and pelvic swelling, mass and lump, unspecified site) see # 1 3. Screening for malignant neoplasm of colon (Z12.11: Encounter for screening for malignant neoplasm of colon) plan colonoscopy under anesthesia after ct scan completed. Follow-up No qualifying data available Patient Education Colonoscopy, Adult Abdominal Pain, Adult Problem List/Past Medical History Ongoing Abdominal wall bulge BMI 40.0-44.9, adult Morbid obesity Right upper quadrant pain Screening for malignant neoplasm of colon Historical No qualifying data Procedure/Surgical History Appendectomy, section, Cholecystectomy, Repair of ventral hernia. Medications No active medications Allergies Tylox (Vomiting, Nausea) morphine (Hives) Social History Alcohol - Denies Alcohol Use, 11/03/2020 Substance Abuse - Denies Substance Abuse, 11/03/2020 Tobacco Former smoker, quit more than 30 days ago Tobacco Use:. Cigarettes, 10 per day. Started age 16.0 Years. Stopped age 35 Years., 11/03/2020 Family History Diabetes mellitus type 2: Mother and Sister. Hypertension: Mother and Sister. Primary malignant neoplasm of skin: Father. Immunizations Vaccine Date Status SARS-CoV-2 (COVID-19) mRNA-1273 vaccine 03/07/2020 Recorded SARS-Co (more content not included)... [facility] Comment on above: Result Comment: Elec tronically Signed By: ANNALISA CORCORAN, Timothy Braxton\Date and Time Signed: 11/05/20 08:08 EDT Summary Purpose Family History No Family History Records FoundNo Family History Records FoundNo Family History Records Found Advance Directives No Advanced Directives Records FoundNo Advanced Directives Records FoundNo Advanced Directives Records Found Additional Source Comments INFORMATION SOURCE (unrecogn ized section and content) DATE CREATED AUTHOR 08/09/2017 [facility] DATE CREATED AUTHOR AUTHOR'S ORGANIZ ATION 12/03/2020 [facility] DATE CREATED AUTHOR AUTHOR'S ORGANIZ ATION 12/17/2021 [facility] FOR RECORDS PERTAINING TO PATIENTS WHO ARE OR HAVE BEEN ENROLLED IN A CHEMICAL DEPENDENCY/SUBSTANCEABUSE PROGRAM, SOME INFORMATION MAY BE OMITTED. This clinical summary was aggregated from multiple sources. Caution should be exercised in using it in the provision of clinical care. This summary normalizes information from multiple sources, and as a consequence, information in this document may materially change the coding, format and clinical context of patient data. In addition, data may be omitted in some cases. CLINICAL DECISIONS SHOULD BE BASED ON THE PRIMARY CLINICAL RECORDS. [employer] provides no warranty or guarantee of the accuracy or completeness of information in this document.
[2024-11-25 09:51] LABS: Hematocrit 40.9 % (36.0-48.0); Hemoglobin 13.6 g/dL (12.0-16.0); Immature Granulocytes Abs Auto 0.01 10^3/uL (0.00-0.03); Immature Granulocytes Pct Auto 0.2 % (0.0-0.5); Lymphocytes Absolute Auto 1.4 10^3/uL (1.2-3.8); Mean Corpuscular HGB Conc 33.3 g/dL (29.9-35.2); Mean Corpuscular Hemoglobin 28.8 pg (26.7-34.0); Mean Corpuscular Volume 86.5 fL (81.0-99.0); Platelet Count 250 10^3/uL (150-450); Red Blood Count 4.73 10^6/uL (4.20-5.40); White Blood Count 5.3 10^3/uL (4.0-11.0)
[2024-11-25 10:15] LABS: Alanine Aminotransferase 34 U/L (14-59); Albumin Globulin Ratio 0.8; Albumin Level 3.7 g/dL (3.4-5.0); Alkaline Phosphatase 156 U/L (46-116); Anion Gap 12.8; Aspartate Amino Transferase 18 U/L (15-37); Blood Urea Nitrogen 9.0 mg/dL (7.0-18.0); Calcium 9.1 mg/dL (8.5-10.1); Carbon Dioxide 26.7 mmol/L (21.0-32.0); Chloride 105 mmol/L (98-107); Cholesterol 143 mg/dL (<=200); Estimated GFR (African America >60 (>=60 mL/min/1.73m^2); Estimated GFR (Non-African Ame >60 (>=60 mL/min/1.73m^2); Globulin 4.6 g/dL; Glucose 107 mg/dL (74-106); HDL Cholesterol 26 mg/dL (40-60); Potassium 4.5 mmol/L (3.5-5.1); Sodium 140 mmol/L (136-145); Thyroid Stimulating Hormone 0.692 uIU/mL (0.358-3.740); Total Protein 8.3 g/dL (6.4-8.2); Triglycerides 179 mg/dL (<=150); VLDL CHOLESTEROL 35.8 mg/dL
--- OUTSIDE RECORDS SUMMARY | 2024-11-25 12:43 | XMS_ITS | CCD ---
Author Organization [facility] Care Team Providers Care Armature Winder Name Role Phone IKE RUDD Unavailable Unavailab [...] (1 source) Morphine Drug Allergy 02-13-2020 [facility] Repository Problems Active Problems Problem Classification Problem [...] 09:31 EDT Final Diagnosis Report for [place], [place] (A/B) ISTHMUS THYROID NODULES; FINE NEEDLE [...] 2. Pathology results are pending. Normal [facility] US THYROIDon 11-18-2021 US THYROID EXAMINATION: US [...] thyroid lobe measuring 1.7 cm TI-RADS: The [employer] TI-RADS committee's white paper recommendations for thyroid lesions classified as TR4 (moderately suspicious) are listed below: > 1.0 cm. Follow-up ultrasound in 1, 2, 3, and 5 years. > 1.5 cm. FNA. J. Am Marie Radiol 2017;14:587-595. Electronically authenticated by: MINISTERIO ARMENTA Date: 2021-11-18 11:33 Normal [facility] THYROTROPIN RECEPTOR ABon Thyrotropin Receptor Ab, Serum <1.10 Normal 0.00-1.75 [facility] Comment on above: Performed By: #### T HYRABT #### [facility] Laboratory [address] [address] [address] Kimberly Capone HEPATITIS C ANTIBODYon 11-10 Hep C Virus Ab 0.1 s/co ratio Normal 0.0-0.9 [facility] Comment on above: Result Comment: Nega [...] Hepatitis C Virus (HCV) RNA, Diagnosis, FLORENCIA ([id number]) and Hepatitis C Virus (HCV) Antibody with reflex to Quantitative Real-time PCR ([id number]). Performed By: #### H CV ####[facility] L[address] [place], [place] [address]Dr. Kimberly Capone CBC AUTO DIFFon 11-09-2021 BASO # 0.0 103/ul Normal 0.0-0.1 [facility] Comment on above: Performed By: #### C BC ####[facility] L[address] [place], [place] [address]DrAda Capone Basophils/100 WBC (Bld) 0.4 % Normal 0.2-2.0 [facility] Comment on above: Performed By: #### C BC ####[facility] [address] [address]DrAda Capone EO # 0.1 103/ul Normal 0.0-0.7 [facility] Comment on above: Performed By: #### C BC ####[facility] [address] [place], [place] [address]DrAda Capone Eosinophils/100 WBC (Bld) 2.5 % Normal 0.9-7.0 [facility] Comment on above: Performed By: #### C BC ####[facility] Ourfs[address] [place], [place] [address]DrAda Capone Erythrocyte distribution width (RBC) [Ratio] 12.9 % Normal 11.0-15.0 [facility] Comment on above: Performed By: #### C BC ####[facility] [address] [address]DrAda Kimberly Capone Hematocrit (Bld) [Volume fraction] 40.5 % Normal 36.0-48.0 [facility] Comment on above: Performed By: #### C BC ####[facility] [address] [address]DrAda Kennedysean Liborio Hemoglobin (Bld) [Mass/Vol] 13.2 g/dL Normal 12.0-16.0 [facility] Comment on above: Performed By: #### C BC ####[facility] [address] [place], [place] [address]DrAda Capone IG # 0.01 10e3/ul Normal 0.00-0.03 [facility] Comment on above: Performed By: #### C BC ####[facility] E[address] [place], [place] [address]DrAda Capone IG % 0.2 % Normal 0.0-0.5 [facility] Comment on above: Performed By: #### C BC ####[facility] Z[address] [place], [place] [address]DrAda Capone LYMPH # 1.4 103/ul Normal 1.2-3.8 [facility] Comment on above: Performed By: #### C BC ####[facility] [address] [place], [place] [address]DrAda Capone Lymphocytes/100 WBC (Bld) 25.0 % Normal 20.5-60.0 [facility] Comment on above: Performed By: #### C BC ####[facility] F[address] [place], [place] [address]DrAda Capone MANUAL DIFF REQ NO Normal [facility] Comment on above: Performed By: #### C BC ####[facility] [address] [address]DrAda Capone MCH (RBC) [Entitic mass] 28.8 pg Normal 26.7-34.0 [facility] Comment on above: Performed By: #### C BC ####[facility] [address] [id number]. Kimberly Capone MCHC (RBC) [Mass/Vol] 32.6 g/dL Normal 29.9-35.2 [facility] Comment on above: Performed By: #### C BC ####[facility] [address] [id number]. Kimberly Capone MCV (RBC) [Entitic vol] 88.4 fL Normal 81.0-99.0 [facility] Comment on above: Performed By: #### C BC ####[facility] [address] [place], [place] [address]Dr. Kimberly Capone MONO # 0.4 103/ul Normal 0.3-0.8 [facility] Comment on above: Performed By: #### C BC ####[facility] [address] [place], [place] [address]Dr. Kimberly Capone Monocytes/100 WBC (Bld) 7.0 % Normal 1.7-12.0 [facility] Comment on above: Performed By: #### C BC ####[facility] [address] [place], [place] [address]Dr. Kimberly Capone NEUT # 3.6 103/ul Normal 1.4-6.5 [facility] Comment on above: Performed By: #### C BC ####[facility] [address] [place], [place] [address]DrAda Capone Neutrophils/100 WBC (Bld) 64.9 % Normal 43.0-75.0 [facility] Comment on above: Performed By: #### C BC ####[facility] [address] [place], [place] [address]DrAda Capone Platelet mean volume (Bld) [Entitic vol] 9.2 fL Critically low 9.5-13.5 [facility] Comment on above: Performed By: #### C BC ####[facility] [address] [place], [place] [address]Dr. Kimberly Capone PLT 266 103/ul Normal 150-450 [facility] Comment on above: Performed By: #### C BC ####[facility] [address] [place], [place] [address]BxAda Capone RBC 4.58 106/ul Normal 4.20-5.40 [facility] Comment on above: Performed By: #### C BC ####[facility] [address] [place], [place] [address]AaAda Capone WBC 5.6 103/ul Normal 4.0-11.0 [facility] Comment on above: Performed By: #### C BC ####[facility] [address] [id number] Capone FREE T3on 11-09-2021 FREE T3 3.57 pg/mlL Normal 2.18-3.98 [facility] Comment on above: Performed By: #### F T3 #### [facility] Laboratory [address] [address] [address] Kimberly Capone FREE T4on 11-09-2021 Free T4 [Mass/Vol] 1.16 ng/dL Normal 0.76-1.46 [facility] Comment on above: Performed By: #### F T4 ####[facility] [address] [address]Dr. Kimberly Capone GLYCOHEMOGLOBIN A1Con 2021 ADA RECOMMENDATION SEE BELOW Normal [facility] Comment on above: Result Comment: ADA RECOMMENDED LIMIT 4.0 - 6.0 ADA THERAPEUTIC TARGET < 7.0 ACTION SUGGESTED > 7.0 Performed By: #### A 1C #### [facility] [address] [address] [address] Kimberly Capone Glucose [Mass/Vol] 111 mg/dL Normal [facility] Comment on above: Performed By: #### A 1C #### [facility] [address] [address] [address] Kimberly Capone HbA1c (Bld) [Mass fraction] 5.5 % Normal 4.5-6.2 [facility] Comment on above: Performed By: #### A 1C #### [facility] [address] [address] [address] Kimberly Capone LIPID PROFILEon 11-09-2021 CHOL-HDL RATIO NORM SEE BELOW Normal [facility] Comment on above: Result Comment: 3.3 - 4.4 LOW RISK 4.4 - 7.1 AVERAGE RISK 7.1 - 11.0 MODERATE RISK >11.0 HIGH RISK Performed By: #### C MP, LIPID, TSH #### [facility] [address] [address] [address] Kimberly Capone Cholesterol [Mass/Vol] 143 mg/dL Normal <=200 [facility] Comment on above: Performed By: #### C MP, LIPID, TSH #### [facility] [address] [address] [address] Kimberly Capone Cholesterol in HDL [Mass/Vol] 29 mg/dL Critically low 40-60 [facility] Comment on above: Performed By: #### C MP, LIPID, TSH #### [facility] [address] [address] [address] Kimberly Capone Cholesterol in LDL [Mass/Vol] 88.0 mg/dL Normal [facility] Comment on above: Performed By: #### C MP, LIPID, TSH #### [facility] [address] [address] [address] Kimberly Capone Cholesterol.total/C holesterol in HDL [Mass ratio] 4.9 {ratio} Normal [facility] Comment on above: Performed By: #### C MP, LIPID, TSH #### [facility] [address] [address] [address] Kimberly Capone HDL NORMAL > or = 60 mg/dl - LO W CARDIOVASCULAR RISK <40 mg/dl - HIGH CARDIOVASCULAR RISK Normal [facility] Comment on above: Performed By: #### C MP, LIPID, TSH #### [facility] [address] [address] [address] Kimberly Capone LDL CALC NORMAL SEE BELOW Normal [facility] Comment on above: Result Comment: <100 mg/dl OPTIMAL 100 - 129 mg/dl NEAR OR ABOVE OPTIMAL 130 - 159 mg/dl BORDERLINE HIGH 160 - 189 mg/dl HIGH >190 mg/dl VERY HIGH Performed By: #### C MP, LIPID, TSH #### [facility] [address] [place], [place] [address] Dr. Kimberly Capone Triglyceride [Mass/Vol] 130 mg/dL Normal <=150 [facility] Comment on above: Performed By: #### C MP, LIPID, TSH #### [facility] [address] [place], [place] [address] Dr. Kimberly Capone VLDL CALC 26.0 mg/dL Normal [facility] Comment on above: Performed By: #### C MP, LIPID, TSH #### [facility] [address] [place], [place] [address] Dr. 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 Kimberly Capone Albumin/Globulin [Mass ratio] 1.0 {ratio} Normal [facility] Comment on above: Performed By: #### C MP, LIPID, TSH #### [facility] [address] [address] [address] Kimberly Capone ALP [Catalytic activity/Vol] 123 U/L Critically high 46-116 [facility] Comment on above: Performed By: #### C MP, LIPID, TSH #### [facility] [address] [address] [address] Kimberly Capone ALT [Catalytic activity/Vol] 31 U/L Normal 14-59 [facility] Comment on above: Performed By: #### C MP, LIPID, TSH #### [facility] [address] [address] [address] Kimberly Capone Anion gap [Moles/Vol] 12.9 mmol/L Normal [facility] Comment on above: Performed By: #### C MP, LIPID, TSH #### [facility] [address] [address] [address] Kimberly Capone AST [Catalytic activity/Vol] 17 U/L Normal 15-37 [facility] Comment on above: Performed By: #### C MP, LIPID, TSH #### [facility] [address] [address] [address] Kimberly Capone Bilirubin [Mass/Vol] 0.5 mg/dL Normal 0.2-1.0 [facility] Comment on above: Performed By: #### C MP, LIPID, TSH #### [facility] [address] [address] [address] Kimberly Capoen Calcium [Mass/Vol] 9.4 mg/dL Normal 8.5-10.1 [facility] Comment on above: Performed By: #### C MP, LIPID, TSH #### [facility] [address] [address] [address] Kimberly Capone Chloride [Moles/Vol] 104 mmol/L Normal 98-107 [facility] Comment on above: Performed By: #### C MP, LIPID, TSH #### [facility] Laboratory [address] [place] [address] Dr. Kimberly Capone CO2 [Moles/Vol] 27.3 mmol/L Normal 21.0-32.0 [facility] Comment on above: Performed By: #### C MP, LIPID, TSH #### [facility] [address] [place] [address] Dr. Kimberly Capone Creatinine [Mass/Vol] 0.78 mg/dL Normal 0.55-1.02 [facility] Comment on above: Performed By: #### C MP, LIPID, TSH #### [facility] [address] [place] [address] Dr. Kimberly Capone EGFR-AF [place] ISLANDER >60 Normal >=60 [facility] Comment on above: Performed By: #### C MP, LIPID, TSH #### [facility] [address] [place] [address] Dr. Kimberly Capone EGFR-NON AF [place]ER >60 Normal >=60 [facility] Comment on above: Performed By: #### C MP, LIPID, TSH #### [facility] [address] [place] [address] Dr. Kimberly Capone Globulin (S) [Mass/Vol] 4.1 g/dL Normal [facility] Comment on above: Performed By: #### C MP, LIPID, TSH #### [facility] [address] [place] [address] Dr. Kimberly Capone Glucose [Mass/Vol] 110 mg/dL Critically high 74-106 T [facility] Comment on above: Performed By: #### C MP, LIPID, TSH #### [facility] [address] [place] [address] Dr. Kimberly Capone Potassium [Moles/Vol] 4.2 mmol/L Normal 3.5-5.1 [facility] Comment on above: Performed By: #### C MP, LIPID, TSH #### [facility] [address] [place] [address] Dr. Kimberly Capone Protein [Mass/Vol] 8.1 g/dL Normal 6.4-8.2 [facility] Comment on above: Performed By: #### C MP, LIPID, TSH #### [facility] [address] [place] [address] Dr. Kimberly Capone Sodium [Moles/Vol] 140 mmol/L Normal 136-145 [facility] Comment on above: Performed By: #### C MP, LIPID, TSH #### [facility] [address] [place] [address] Dr. Kimberly Capone Urea nitrogen [Mass/Vol] 12.0 mg/dL Normal 7.0-18.0 [facility] Comment on above: Performed By: #### C MP, LIPID, TSH #### [facility] [address] [place] [address] Dr. Kimberly Capone Urea nitrogen/Creatinine [Mass ratio] 15.4 mg/mg Normal [facility] Comment on above: Performed By: #### C MP, LIPID, TSH #### [facility] [address] [place] [address] Dr. Kimberly Capone TSHon 11-09-2021 TSH 0.197 uIU/mL Critically low 0.358-3.740 [facility] Comment on above: Performed By: #### C MP, LIPID, TSH #### [facility] [address] [place] [address] Dr. Kimberly Capone ASYMPTOMATIC COVID-19 ANTIGE Non 10-27-2021 EUA Statement SEE BELOW Normal [facility] Comment on above: Result Comment: This test [...] sooner. Performed By: #### C VDAGA #### [facility] Laboratory [address] [place] [address] [address] [address] Kimberly Capone SARS-CoV-2 (COVID-19) RNA FLORENCIA+probe Ql (Unsp spec) Negative Normal NEGATIVE [facility] Comment on above: Result Comment: Nega tive results are presumptive. They do not preclude infection and should not be used as the sole basis for treatment decisions. Additional confirmatory testing by a molecular method should be considered. Performed By: #### C VDAGA #### [facility] [address] [place], [place] [address] Dr. Kimberly Capone [facility]14 SARS-CoV-2 (COVID-19) RNA FLORENCIA+probe Ql (Unsp spec) Not detected Normal NOT DETECTED [facility] Comment on above: Result Comment: When diagnostic [...] for this test is supported by the [place] of Health and Human Service's declaration that [...] be used). Performed By: #### C VDTBH ####[facility] [address] [place], [place] [address]XkDr. Kimberly Capone RAD - CT Reporton 11-13-[address] RAD - CT Report [id number]:127 Normal [facility] Provider Letter FTon 11-06 Provider Letter [facility] November 06, 2020 Micah Plascencia D.O. [address] [place] [address] Re: VINH TOM Date of : 1970 [...] Sincerely, Timothy Squires MD General Surgery Normal [facility] Patient Educationon 11-06-19 Patient Education Gastroenterology Abdominal [...] these instructions at home: Medicines ? Take iboo-mll-hfporic and prescription medicines only as told by [...] your condition for any changes. ? Take opdc-pwx-qrykrlv and prescription medicines only as told by [...] 11/09/2005 Document Revised: 06/10/2019 Document Reviewed: 06/10/2019 [employer] Patient Education ? 2020 [employer] Radiology Colonoscopy, Adult A colonoscopy is [...] including vitamins, herbs, eye drops, creams, and fnkq-kcd-izxgoat medicines. ? Any problems you or family [...] oral bowel p (more content not included)... [facility] Pre-Certification Formon Pre-Certification Form [id number]:127 [facility] Physician Referralon 021 Physician Referral [id number]#[id number]:127 [facility] CNOVon 09-07-2016 CNOV Office Visit (MIRIAN) VINH TOM ([id number]) 1970 [facility] Time Provider Department09/07/16 12:30 PM IKE RUDD During your visit today, we recorded the following information about you: Pulse Respiration Blood pressure Weight 84/minute 18/minute 139/85 90.7 kg Height 1.676 Tere Rudd MD 09/07/2016 1:07 PM [facility] InstituteGeovani Moore Department of Cardiovascular MedicineOUTPATIENT VISIT DATE 09/07/16OUTPATIENT VISIT TYPENEWPRIMARY CARE PHYSICIAN:[place] [address]Mckho: [phone]: [phone] COMPLAINT:Patient presents with:New Patient: Neck and jaw [...] kg (200 lb) SpO2 98% BMI 32.28 kg/x7Rpziyjf: Well appearing, in no acute distress.Eyes: Conjunctiva [...] via U.S. Mail.This document was generated utilizing [employer]. I have reviewed andverified that the contents of the document are accurate with the exception ofminor grammatical, spelling and punctuation errors.CONTACT INFORMATION:Thank you for allowing us to participate in the care of this very pleasantpatient. Please free to contact us if we can be of any further assistance.Ike Rudd MD, FACAlyssa MooreArpartment of Cardiovascular MedicineSumma Health Barberton Campusrt and Vascular InstituteMemorial Health System[address], [place] [address]Lfuhhl: [phone] Referring Provider: LUZ MARIA THORNE [[id number]]Allergies As of Date: 09/07/2016(No Known Allergies)Date Reviewed: 09/07/2016Reviewed by: Ike Rudd - Fully AssessedReason for Visit: New Patient [172] Cmt: Neck and jaw discomfortPrimary Visit Diagnosis:Jaw pain [R68.84]Problem List As Of Date: 09/07/2016(None) Status:Closed by GIO RUDD MD on 09/07/16 [facility] PROGRESSon 09-07-2016 PROGRESS HNO ID: [id number] thor: Ike Esquedaervice: (none)Author Type: PhysicianType: Progress NotesFiled: 09/07/2016 1:07 PMNote Text:Heart and Vascular InstituteRobert and Sahra Moore Department of Cardiovascular MedicineOUTPATIENT VISIT DATE 09/07/16OUTPATIENT VISIT TYPENEWPRIMARY CARE PHYSICIAN:Luz Maria Thorne MD[address] [address]Rulvq: [phone]: [phone] COMPLAINT:Patient presents with:New Patient: Neck and jaw [...] kg (200 lb) SpO2 98% BMI 32.28 kg/j8Fxfqwgn: Well appearing, in no acute distress.Eyes: Conjunctiva [...] via U.S. Mail.This document was generated utilizing [employer]. I have reviewedand verified that the contents of the document are accurate with theexception of minor grammatical, spelling and punctuation errors.CONTACT INFORMATION:Thank you for allowing us to participate in the care of this very pleasantpatient. Please free to contact us if we can be of any furtherassistance.Ike Rudd MD, FACCRobert and Sahra MooreDepartment of Cardiovascular MedicineSumma Health Barberton Campusrt and Vascular Institute[address] [address]Jxzrpz: [phone] [facility] Encounters Encounter Date Encounter Type Care Provider Facility Start: 12-10-2021 End: 12-10-2021 ambulatory NINA GARCIA Facility:[facility] Start: 11-18-2021 End: 11-19-2021 ambulatory VALARIE RILEYLUIS CARLOS Facility:[facility] Start: 11-11-2021 Encounter for genera l adult medical examination without abnormal findings DR DOCTOR DEL RIO [facility] Start: 11-09-2021 End: 11-10-[address] DOCTOR DEL RIO Facility:[facility] Start: 11-09-2021 End: 11-10-2021 Encounter for general adult medical examination without abnormal findings DR DOCTOR DEL RIO Facility:[facility] Start: 10-27-2021 End: 10-27-[address] DOCTOR DEL RIO Facility:[facility] Start: 10-08-2021 End: 10-08-2021 ambulatory FRANK JAMES Facility:[facility] Start: 09-07-2016 End: 09-13-2016 Ambulatory IKE RUDD [facility] Payers Date Payer Category Payer Unknown [id number] 1970 Unknown [id number] 2.16.84 [id number] 1970 Unknown [id number] 2.16.84 [id number] 1970 Unknown [id number] 2.16.84 [id number] 1970 Unknown [id number] 2.16.84 [id number] 1970 Unknown [id number] 2.16.84 [id number] Clinical Note 11-29-2020 Note Date & Type [...] skin lumps. Neurologi (more content not included)... [facility] Comment on above: Result Comment: Elec tronically [...] 03/07/2020 Recorded SARS-Co (more content not included)... [facility] Comment on above: Result Comment: Elec tronically [...] section and content) DATE CREATED AUTHOR 08/09/2017 [facility] DATE CREATED AUTHOR AUTHOR'S ORGANIZ ATION 12/03/2020 [facility] DATE CREATED AUTHOR AUTHOR'S ORGANIZ ATION 12/17/2021 [...] BE BASED ON THE PRIMARY CLINICAL RECORDS. [email or web address] provides no warranty or guarantee of the accuracy or completeness of information in this document.
== END 2024-11-25 09:14 | disposition home or self-care (01) ==
PROVIDERS: PCP Family Medicine; Visit Provider Nurse Practitioner Family
DX: Z00.01 Encounter for general adult medical examination with abnormal findings (principal); E66.813 Obesity, class 3
CPT/HCPCS: 36415; 80053; 80061; 83036; 84443; 85025

== ENCOUNTER 2024-11-28 15:16 | Outpatient (OUT) | payer BC, SELFPAY ==
--- NOTE | 2024-11-28 15:20 | MM_ITS ---
Patient Name: VINH BROWN MR#: [id number] : 1970 Exam Date: 11/28/2024 Ordering Doctor: JORDYN VARGAS MEDICAL ILLUSTRATOR CORRECTION Corrected on: 11/28/2024; RADIOLOGY REPORT PROCEDURE: MM TOMOSYNTHESIS SCREENING BI COMPARISON: MM TOMOSYNTHESIS SCREENING BI, 11/03/2023. MM TOMOSYNTHESIS SCREENING BI, 11/02/2022. MG MAMM SCREEN 3D CINDA CAD, 11/09/2021. MG MAMM SCREEN CINDA W CAD, 08/30/2017. INDICATIONS: Screening mammogram Calculator Name NCI Breast Cancer Risk Assessment Tool 5 Year Breast Cancer Risk 1.10% Lifetime Breast Cancer Risk 7.40% Personal Breast Cancer No Personal Ovarian Cancer No Treatments None Family Cancers None LOCATION: [facility] BREAST COMPOSITION: There are scattered areas of fibroglandular density. FINDINGS: DIAGNOSTIC CATEGORY 1--NEGATIVE. RIGHT BREAST: No significant suspicious finding. LEFT BREAST: No significant suspicious finding. RECOMMENDATIONS: ROUTINE MAMMOGRAM AND CLINICAL EVALUATION IN 12 MONTHS. Dictated by: Александр Lee MD on 11/28/2024 at 16:03 Approved by: Александр Lee MD on 11/28/2024 at 16:22 Dictated by: Александр Lee MD on 11/28/2024 at 16:31 Approved by: Александр Lee MD on 11/28/2024 at 16:31
--- OUTSIDE RECORDS SUMMARY | 2024-11-28 15:21 | XMS_ITS | Patient Health Record ---
Author Organization [facility]ly [facility] vices Address [address] [place], [place] [id number] Care Team Providers Care Automotive Mechanic Name Role Phone [email or web address] Xavier Primary Care Provider Allergies Allergen (clinical drug ingredient) Drug/Non Drug Allergy documented on EMR Reaction Allergy Type Onset Date Status Morphine Sulfate hives Drug Allergy Active Tylox diarrhea Drug Allergy Active Reason For Referral No Information Social History Tobacco Use: Social History Observation Description Date Details (start date - stop date) Former Smoker NA - NA Sex Assigned At : Social History Observation Description Sex Assigned At Female Household Question Answer Notes Marital status: Number of adults in household: 2 Tobacco Use/Smoking Question Answer Notes Tobacco use: former smoker Alcohol Screen (Audit-C) Question Answer Notes Did you have a drink containing alcohol in the p ast year? No Points 0 Interpretation Negative Problems Problem Type SNOMED Code ICD Code Onset Dates Problem Status W/U Status Risk Notes Problem Subclinical hyperthyroidism (621470253) Subclinical hyperthyroidism (E05.90) Active confirmed Problem Body mass index 40+ - morbidly obese (480933569) BMI 40.0-44.9, adult (Z68.41) Active confirmed Problem Non-toxic single thyroid nodule (525707123) Thyroid nodule greater than or equal to 1.5 cm in diameter incidentally noted on imaging study (E04.1) Active confirmed Plan Of Treatment No Information Insurance Providers Payer Name Payer Address Payer Phone Subscriber Number Group Number Insured Name Patient Relationship to Insured Coverage Start Date Coverage End Date [employer] [place] [address] [place] [phone] [id number] Jeimy Tom Self - patient is the insured 2 Medical (General) History Surgical History Surgery Date(Month/Year) appendectomy cholecystectomy 02/2009 section (two) (1996 and 1999) Hernia repair 02/2006
--- OUTSIDE RECORDS SUMMARY | 2024-11-28 15:27 | XMS_ITS | CCD ---
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 Pathology results are pending. Normal [facility] US THYROIDon 11-18-2021 US THYROID EXAMINATION: US [...] thyroid lobe measuring 1.7 cm TI-RADS: The [employer] TI-RADS committee's white paper recommendations for thyroid lesions classified as TR4 (moderately suspicious) are listed below: > 1.0 cm. Follow-up ultrasound in 1, 2, 3, and 5 years. > 1.5 cm. FNA. J. Am Marie Radiol 2017;14:587-595. Electronically authenticated by: MINISTERIO ARMENTA Date: 2021-11-18 11:33 Normal [facility] THYROTROPIN RECEPTOR ABon Thyrotropin Receptor Ab, Serum <1.10 Normal 0.00-1.75 [facility] Comment on above: Performed By: #### T HYRABT #### [facility] Laboratory [address] [address] [address] Kimberly Capone HEPATITIS C ANTIBODYon 11-10 Hep C Virus Ab 0.1 s/co ratio Normal 0.0-0.9 [facility] Comment on above: Result Comment: Nega tive: [...] Hepatitis C Virus (HCV) RNA, Diagnosis, FLORENCIA (621145) and Hepatitis C Virus (HCV) Antibody with reflex to Quantitative Real-time PCR ([id number]). Performed By: #### H CV ####[facility] [address] [place], [place] [address]Dr. Kimberly Capone CBC AUTO DIFFon 11-09-2021 BASO # 0.0 103/ul Normal 0.0-0.1 [facility] Comment on above: Performed By: #### C BC ####[facility] [address] [place], [place] [address]DrAda Capone Basophils/100 WBC (Bld) 0.4 % Normal 0.2-2.0 [facility] Comment on above: Performed By: #### C BC ####[facility] [address] [address]DrAda Capone EO # 0.1 103/ul Normal 0.0-0.7 [facility] Comment on above: Performed By: #### C BC ####[facility] [address] [place], [place] [address]DrAda Capone Eosinophils/100 WBC (Bld) 2.5 % Normal 0.9-7.0 [facility] Comment on above: Performed By: #### C BC ####[facility] [address] [place], [place] [address]DrAda Capone Erythrocyte distribution width (RBC) [Ratio] 12.9 % Normal 11.0-15.0 [facility] Comment on above: Performed By: #### C BC ####[facility] [address] [address]DrAda Kimberly Capone Hematocrit (Bld) [Volume fraction] 40.5 % Normal 36.0-48.0 [facility] Comment on above: Performed By: #### C BC ####[facility] [address] [address]DrAda Kennedysean Liborio Hemoglobin (Bld) [Mass/Vol] 13.2 g/dL Normal 12.0-16.0 [facility] Comment on above: Performed By: #### C BC ####[facility] [address] [place], [place] [address]DrAda Capone IG # 0.01 10e3/ul Normal 0.00-0.03 [facility] Comment on above: Performed By: #### C BC ####[facility] [address] [place], [place] [address]DrAda Capone IG % 0.2 % Normal 0.0-0.5 [facility] Comment on above: Performed By: #### C BC ####[facility] [address] [place], [place] [address]DrAda Capone LYMPH # 1.4 103/ul Normal 1.2-3.8 [facility] Comment on above: Performed By: #### C BC ####[facility] [address] [place], [place] [address]DrAda Capone Lymphocytes/100 WBC (Bld) 25.0 % Normal 20.5-60.0 [facility] Comment on above: Performed By: #### C BC ####[facility] [address] [place], [place] [address]DrAda Capone MANUAL DIFF REQ NO Normal [facility] Comment on above: Performed By: #### C BC ####[facility] [address] [address]DrAda Capone MCH (RBC) [Entitic mass] 28.8 pg Normal 26.7-34.0 [facility] Comment on above: Performed By: #### C BC ####[facility] [address] [address]Dr. Kimberly Capone MCHC (RBC) [Mass/Vol] 32.6 g/dL Normal 29.9-35.2 [facility] Comment on above: Performed By: #### C BC ####[facility] [address] [address]Dr. Kimberly Capone MCV (RBC) [Entitic vol] 88.4 fL Normal 81.0-99.0 [facility] Comment on above: Performed By: #### C BC ####[facility] [address] [place], [place] [address]Dr. Kimberly Capone MONO # 0.4 103/ul Normal 0.3-0.8 [facility] Comment on above: Performed By: #### C BC ####[facility] [address] [place], [place] [address]Dr. Kimberly Capone Monocytes/100 WBC (Bld) 7.0 % Normal 1.7-12.0 [facility] Comment on above: Performed By: #### C BC ####[facility] [address] [place], [place] [address]Dr. Kimberly Capone NEUT # 3.6 103/ul Normal 1.4-6.5 [facility] Comment on above: Performed By: #### C BC ####[facility] [address] [place], [place] [address]DrAda Capone Neutrophils/100 WBC (Bld) 64.9 % Normal 43.0-75.0 [facility] Comment on above: Performed By: #### C BC ####[facility] [address] [place], [place] [address]DrAda Capone Platelet mean volume (Bld) [Entitic vol] 9.2 fL Critically low 9.5-13.5 [facility] Comment on above: Performed By: #### C BC ####[facility] [address] [place], [place] [address]Dr. Kimberly Capone PLT 266 103/ul Normal 150-450 [facility] Comment on above: Performed By: #### C BC ####[facility] [address] [place], [place] [address]SqAda Capone RBC 4.58 106/ul Normal 4.20-5.40 [facility] Comment on above: Performed By: #### C BC ####[facility] [address] [place], [place] [address]NgAda Capone WBC 5.6 103/ul Normal 4.0-11.0 [facility] Comment on above: Performed By: #### C BC ####[facility] [address] [id number] Capone FREE T3on 11-09-2021 FREE T3 3.57 pg/mlL Normal 2.18-3.98 [facility] Comment on above: Performed By: #### F T3 #### [facility] [address] [address] [address] Kimberly Capone FREE T4on 11-09-2021 Free T4 [Mass/Vol] 1.16 ng/dL Normal 0.76-1.46 [facility] Comment on above: Performed By: #### F T4 ####[facility] [address] [address]Dr. Kimberly Capone GLYCOHEMOGLOBIN A1Con 2021 ADA RECOMMENDATION SEE BELOW Normal [facility] Comment on above: Result Comment: ADA RECOMMENDED LIMIT 4.0 - 6.0 ADA THERAPEUTIC TARGET < 7.0 ACTION SUGGESTED > 7.0 Performed By: #### A 1C #### [facility] [address] [address] [address] Kimberly Capone Glucose [Mass/Vol] 111 mg/dL Normal [facility] Comment on above: Performed By: #### A 1C #### [facility] [address] [address] [address] Kimberly Capone HbA1c (Bld) [Mass fraction] 5.5 % Normal 4.5-6.2 [facility] Comment on above: Performed By: #### A 1C #### [facility] [address] [address] [address] Kimberly Capone LIPID PROFILEon 11-09-2021 CHOL-HDL RATIO NORM SEE BELOW Normal [facility] Comment on above: Result Comment: 3.3 - 4.4 LOW RISK 4.4 - 7.1 AVERAGE RISK 7.1 - 11.0 MODERATE RISK >11.0 HIGH RISK Performed By: #### C MP, LIPID, TSH #### [facility] [address] [address] [address] Kimberly Capone Cholesterol [Mass/Vol] 143 mg/dL Normal <=200 [facility] Comment on above: Performed By: #### C MP, LIPID, TSH #### [facility] [address] [address] [address] Kimberly Capone Cholesterol in HDL [Mass/Vol] 29 mg/dL Critically low 40-60 [facility] Comment on above: Performed By: #### C MP, LIPID, TSH #### [facility] [address] [address] [address] Kimberly Capone Cholesterol in LDL [Mass/Vol] 88.0 mg/dL Normal [facility] Comment on above: Performed By: #### C MP, LIPID, TSH #### [facility] [address] [address] [address] Kimberly Capone Cholesterol.total/C holesterol in HDL [Mass ratio] 4.9 {ratio} Normal [facility] Comment on above: Performed By: #### C MP, LIPID, TSH #### [facility] [address] [address] [address] Kimberly Capone HDL NORMAL > or = 60 mg/dl - LO W CARDIOVASCULAR RISK <40 mg/dl - HIGH CARDIOVASCULAR RISK Normal [facility] Comment on above: Performed By: #### C MP, LIPID, TSH #### [facility] [address] [address] [address] Kimberly Capone LDL CALC NORMAL SEE BELOW Normal [facility] Comment on above: Result Comment: <100 mg/dl OPTIMAL 100 - 129 mg/dl NEAR OR ABOVE OPTIMAL 130 - 159 mg/dl BORDERLINE HIGH 160 - 189 mg/dl HIGH >190 mg/dl VERY HIGH Performed By: #### C MP, LIPID, TSH #### [facility] [address] [place], [place] [address] Dr. Kimberly Capone Triglyceride [Mass/Vol] 130 mg/dL Normal <=150 [facility] Comment on above: Performed By: #### C MP, LIPID, TSH #### [facility] [address] [place], [place] [address] Dr. Kimberly Capone VLDL CALC 26.0 mg/dL Normal [facility] Comment on above: Performed By: #### C MP, LIPID, TSH #### [facility] [address] [place], [place] [address] Dr. 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 Kimberly Capone Albumin/Globulin [Mass ratio] 1.0 {ratio} Normal [facility] Comment on above: Performed By: #### C MP, LIPID, TSH #### [facility] [address] [address] [address] Kimberly Capone ALP [Catalytic activity/Vol] 123 U/L Critically high 46-116 [facility] Comment on above: Performed By: #### C MP, LIPID, TSH #### [facility] [address] [address] [address] iKmberly Capone ALT [Catalytic activity/Vol] 31 U/L Normal 14-59 [facility] Comment on above: Performed By: #### C MP, LIPID, TSH #### [facility] [address] [address] [address] Kimberly Capone Anion gap [Moles/Vol] 12.9 mmol/L Normal [facility] Comment on above: Performed By: #### C MP, LIPID, TSH #### [facility] [address] [address] [address] Kimberly Capone AST [Catalytic activity/Vol] 17 U/L Normal 15-37 [facility] Comment on above: Performed By: #### C MP, LIPID, TSH #### [facility] [address] [address] [address] Kimberly Capone Bilirubin [Mass/Vol] 0.5 mg/dL Normal 0.2-1.0 [facility] Comment on above: Performed By: #### C MP, LIPID, TSH #### [facility] [address] [address] [address] Kimberly Capone Calcium [Mass/Vol] 9.4 mg/dL Normal 8.5-10.1 [facility] Comment on above: Performed By: #### C MP, LIPID, TSH #### [facility] [address] [address] [address] Kimberly Capone Chloride [Moles/Vol] 104 mmol/L Normal 98-107 [facility] Comment on above: Performed By: #### C MP, LIPID, TSH #### [facility] [address] [place] [address] Dr. Kimberly Capone CO2 [Moles/Vol] 27.3 mmol/L Normal 21.0-32.0 [facility] Comment on above: Performed By: #### C MP, LIPID, TSH #### [facility] [address] [place] [address] Dr. Kimberly Capone Creatinine [Mass/Vol] 0.78 mg/dL Normal 0.55-1.02 [facility] Comment on above: Performed By: #### C MP, LIPID, TSH #### [facility] [address] [place] [address] Dr. Kimberly Capone EGFR-AF CAYMAN ISLANDER >60 Normal >=60 [facility] Comment on above: Performed By: #### C MP, LIPID, TSH #### [facility] [address] [place] [address] Dr. Kimberly Capone EGFR-NON AF CAYMAN ISLANDER >60 Normal >=60 [facility] Comment on above: Performed By: #### C MP, LIPID, TSH #### [facility] [address] [place] [address] Dr. Kimberly Capone Globulin (S) [Mass/Vol] 4.1 g/dL Normal [facility] Comment on above: Performed By: #### C MP, LIPID, TSH #### [facility] [address] [place] [address] Dr. Kimberly Capone Glucose [Mass/Vol] 110 mg/dL Critically high 74-106 T [facility] Comment on above: Performed By: #### C MP, LIPID, TSH #### [facility] [address] [place] [address] Dr. Kimberly Capone Potassium [Moles/Vol] 4.2 mmol/L Normal 3.5-5.1 [facility] Comment on above: Performed By: #### C MP, LIPID, TSH #### [facility] [address] [place] [address] Dr. Kimberly Capone Protein [Mass/Vol] 8.1 g/dL Normal 6.4-8.2 [facility] Comment on above: Performed By: #### C MP, LIPID, TSH #### [facility] [address] [place] [address] Dr. Kimberly Capone Sodium [Moles/Vol] 140 mmol/L Normal 136-145 [facility] Comment on above: Performed By: #### C MP, LIPID, TSH #### [facility] [address] [place] [address] Dr. Kimberly Capone Urea nitrogen [Mass/Vol] 12.0 mg/dL Normal 7.0-18.0 [facility] Comment on above: Performed By: #### C MP, LIPID, TSH #### [facility] [address] [place] [address] Dr. Kimberly Capone Urea nitrogen/Creatinine [Mass ratio] 15.4 mg/mg Normal [facility] Comment on above: Performed By: #### C MP, LIPID, TSH #### [facility] [address] [place] [address] Dr. Kimberly Capone TSHon 11-09-2021 TSH 0.197 uIU/mL Critically low 0.358-3.740 [facility] Comment on above: Performed By: #### C MP, LIPID, TSH #### [facility] [address] [place] [address] Dr. Kimberly Capone ASYMPTOMATIC COVID-19 ANTIGE Non 10-27-2021 EUA Statement SEE BELOW Normal [facility] Comment on above: Result Comment: This [...] sooner. Performed By: #### C VDAGA #### [facility] [address] [place] [address] [address] [address] Kimberly Capone SARS-CoV-2 (COVID-19) RNA FLORENCIA+probe Ql (Unsp spec) Negative Normal NEGATIVE [facility] Comment on above: Result Comment: Nega tive results are presumptive. They do not preclude infection and should not be used as the sole basis for treatment decisions. Additional confirmatory testing by a molecular method should be considered. Performed By: #### C VDAGA #### [facility] [address] [place], [place] [address] Dr. Kimberly Capone [facility]14 SARS-CoV-2 (COVID-19) RNA FLORENCIA+probe Ql (Unsp spec) Not detected Normal NOT DETECTED [facility] Comment on above: Result Comment: When diagnostic [...] for this test is supported by the [place] of Health and Human Service's declaration that [...] be used). Performed By: #### C VDTBH ####[facility] [address] [place], [place] [address]KpDr. Kimberly Capone RAD - CT Reporton 11-13-[address] - [address] Report [id number]:127 Normal [facility] Provider Letter FTon 11-06 Provider Letter [facility] November 06, 2020 Micah Plascencia D.O. [address] [place] [address] Re: VINH TOM Date of : 1970 [...] Sincerely, Timothy Squires MD General Surgery Normal [facility] Patient Educationon 11-06-19 Patient Education Gastroenterology Abdominal [...] these instructions at home: Medicines ? Take tvej-nib-nfipbds and prescription medicines only as told by [...] your condition for any changes. ? Take wxpo-pza-tgofewz and prescription medicines only as told by [...] 11/09/2005 Document Revised: 06/10/2019 Document Reviewed: 06/10/2019 [employer] Patient Education ? 2020 [employer] Radiology Colonoscopy, Adult A colonoscopy is [...] including vitamins, herbs, eye drops, creams, and duib-shp-ipvsayi medicines. ? Any problems you or family [...] oral bowel p (more content not included)... [facility] Pre-Certification Formon Pre-Certification Form [id number]:127 [facility] Physician Referralon 021 Physician Referral [id number]#1.00CD:127 [facility] CNOVon 09-07-2016 CNOV Office Visit (MIRIAN) VINH TOM ([id number]) 1970 [facility] Time Provider Department09/07/16 12:30 PM IKE RUDD During your visit today, we recorded the following information about you: Pulse Respiration Blood pressure Weight 84/minute 18/minute 139/85 90.7 kg Height 1.676 Tere Rudd MD 09/07/2016 1:07 PM [facility] InstituteGeovani Moore Department of Cardiovascular MedicineOUTPATIENT VISIT DATE 09/07/16OUTPATIENT VISIT TYPENEWPRIMARY CARE PHYSICIAN:[place] [id number]: [phone]: [phone] COMPLAINT:Patient presents with:New Patient: Neck and jaw [...] kg (200 lb) SpO2 98% BMI 32.28 kg/u0Hihrmhl: Well appearing, in no acute distress.Eyes: Conjunctiva [...] via U.S. Mail.This document was generated utilizing Well[employer]ation. I have reviewed andverified that the contents of the document are accurate with the exception ofminor grammatical, spelling and punctuation errors.CONTACT INFORMATION:Thank you for allowing us to participate in the care of this very pleasantpatient. Please free to contact us if we can be of any further assistance.Ike Rudd MD, FACAlyssa MooreMtpartment of Cardiovascular MedicineHenry County Hospitalrt and Vascular InstituteFayette County Memorial Hospital[address], [place] [address]Xkggpc: [phone] Referring Provider: LUZ MARIA THORNE [[id number]]Allergies As of Date: 09/07/2016(No Known Allergies)Date Reviewed: 09/07/2016Reviewed by: Ike Rudd - Fully AssessedReason for Visit: New Patient [172] Cmt: Neck and jaw discomfortPrimary Visit Diagnosis:Jaw pain [R68.84]Problem List As Of Date: 09/07/2016(None) Status:Closed by GIO RUDD MD on 09/07/16 [facility] PROGRESSon 09-07-2016 PROGRESS HNO ID: [id number] thor: Ike Esquedaervice: (none)Author Type: PhysicianType: Progress NotesFiled: 09/07/2016 1:07 PMNote Text:Heart and Vascular InstituteRobert and Sahra Moore Department of Cardiovascular MedicineOUTPATIENT VISIT DATE 09/07/16OUTPATIENT VISIT TYPENEWPRIMARY CARE PHYSICIAN:Luz Maria Thorne MD[address] [facility] [address]Hjwdb: [phone]: [phone] COMPLAINT:Patient presents with:New Patient: Neck and jaw [...] kg (200 lb) SpO2 98% BMI 32.28 kg/g6Davvrib: Well appearing, in no acute distress.Eyes: Conjunctiva [...] via U.S. Mail.This document was generated utilizing Well[employer]. I have reviewedand verified that the contents of the document are accurate with theexception of minor grammatical, spelling and punctuation errors.CONTACT INFORMATION:Thank you for allowing us to participate in the care of this very pleasantpatient. Please free to contact us if we can be of any furtherassistance.Ike Rudd MD, FACCRobert and Sahra MooreDepartment of Cardiovascular MedicineHenry County Hospitalrt and Vascular Institute[address] [address]Umvzok: [phone] [facility] Encounters Encounter Date Encounter Type Care Provider Facility Start: 12-10-2021 End: 12-10-2021 ambulatory NINA GARCIA Facility:[facility] Start: 11-18-2021 End: 11-19-2021 ambulatory VALARIE RILEYLUIS CARLOS Facility:[facility] Start: 11-11-2021 Encounter for genera l adult medical examination without abnormal findings DR DOCTOR DEL RIO [facility] Start: 11-09-2021 End: 11-10-[address] DOCTOR DEL RIO Facility:[facility] Start: 11-09-2021 End: 11-10-2021 Encounter for general adult medical examination without abnormal findings DR DOCTOR DEL RIO Facility:[facility] Start: 10-27-2021 End: 10-27-[address] DOCTOR DEL RIO Facility:[facility] Start: 10-08-2021 End: 10-08-2021 ambulatory FRANK JAMES Facility:[facility] Start: 09-07-2016 End: 09-13-2016 Ambulatory IKE RUDD [facility] Payers Date Payer Category Payer Unknown [id number] 1970 Unknown [id number] 2.16.84 [id number] 1970 Unknown [id number] 2.16.84 [id number] 1970 Unknown [id number] 2.16.84 [id number] 1970 Unknown [id number] 2.16.84 [id number] 1970 Unknown [id number] 2.16.84 [id number] Clinical Note 11-29-2020 Note Date & Type [...] skin lumps. Neurologi (more content not included)... [facility] Comment on above: Result Comment: Elec tronically [...] 03/07/2020 Recorded SARS-Co (more content not included)... [facility] Comment on above: Result Comment: Elec tronically [...] section and content) DATE CREATED AUTHOR 08/09/2017 [facility] DATE CREATED AUTHOR AUTHOR'S ORGANIZ ATION 12/03/2020 [facility] DATE CREATED AUTHOR AUTHOR'S ORGANIZ ATION [...] BE BASED ON THE PRIMARY CLINICAL RECORDS. [employer] provides no warranty or guarantee of the accuracy or completeness of information in this document.
== END 2024-11-28 15:17 | disposition home or self-care (01) ==
LOC: MAMMO 15:16
PROVIDERS: PCP Registered Nurse; Visit Provider Registered Nurse
DX: Z12.31 Encounter for screening mammogram for malignant neoplasm of breast (principal)
CPT/HCPCS: 77063; 77067